=== PATIENT | female | born 1935 | race Caucasian/White ===

== ENCOUNTER → 2023-08-31 09:41 | Outpatient (REF) | payer OTHER, SELFPAY | LOC: HWWDC 09:41 | PROVIDERS: ATTENDING PHYSICIAN Physician Assistant Medical | DX: E78.2 Mixed hyperlipidemia (principal); C50.911 Malignant neoplasm of unspecified site of right female breast; Z12.31 Encounter for screening mammogram for malignant neoplasm of breast | CPT/HCPCS: 77063; 77067 ==

== ENCOUNTER → 2023-11-30 10:05 | Outpatient (REF) | payer OTHER, SELFPAY | LOC: HWRAD 10:05 | PROVIDERS: ATTENDING PHYSICIAN Internal Medicine Cardiovascular Disease; FAMILY PHYSICIAN Physician Assistant Medical | DX: I77.810 Thoracic aortic ectasia (principal) | CPT/HCPCS: 71250 ==

== ENCOUNTER 2024-04-30 11:27 | Inpatient (IN) | payer OTHER, SELFPAY ==
[2024-04-30] VITALS (10 sets, daily range): BP systolic 116–141; BP diastolic 74–82; PULSE 85; O2SAT 95; BMI 26.4; BMI 27.7
[2024-04-30 04:57] LABS: % Basophils 0.5 % (0-2); % Eosinophils 0.1 % (0-6); % Immature Granulocytes 0.6 % (0-0.5); % Lymphocytes 2.5 % (20.5-51.1); % Monocytes 6.8 % (1.7-9.3); % Neutrophils 89.5 % (42.2-75.2); Absolute Basophils 0.1 10^3/uL (0-0.2); Absolute Immature Granulocytes 0.1 10^3/uL (0-0.05); Absolute Lymphocytes 0.4 10^3/uL (1.2-3.4); Absolute Monocytes 1.2 10^3/uL (0.1-0.6); Absolute Neutrophils 15.4 10^3/uL (1.4-6.5); Hematocrit 37.5 % (37.0-47.0); Hemoglobin 13.2 g/dL (12.0-16.0); Mean Corp Hgb Conc. 35.2 g/dL (33.0-37.0); Mean Corpuscular Hgb 31.6 pg (27.0-31.0); Mean Corpuscular Volume 89.7 fL (81.0-99.0); Mean Platelet Volume 9.2 fL (7.4-10.4); Nucleated Red Blood Cells % 0 %; Platelet Count 221 10^3/uL (130-400); Red Blood Cell Count 4.18 10^6/uL (4.20-5.40); Red Cell Dist. Width 13.2 % (11.5-14.5); White Blood Cell Count 17.3 10^3/uL (4.8-10.8)
[2024-04-30 05:13] LABS: ALT (SGPT) 23 U/L (0-35); AST (SGOT) 24 U/L (14-36); Albumin 3.7 g/dl (3.5-5.0); Alkaline Phosphatase 82 U/L (38-126); Blood Urea Nitrogen 29 mg/dl (7-17); Calcium 8.9 mg/dl (8.4-10.2); Carbon Dioxide 26 mmol/L (22-30); Chloride 97 mmol/L (98-107); Glucose 152 mg/dl (70-99); Potassium 3.1 mmol/L (3.5-5.1); Sodium 134 mmol/L (135-145); Total Bilirubin 1.5 mg/dl (0.2-1.3); Total Protein 6.2 g/dl (6.3-8.2); eGFR > 60.00
[2024-04-30 05:23] LABS: Troponin I < 0.012 ng/ml
[2024-04-30 08:49] LABS: COVID-19 Antigen Negative (Negative)
--- NOTE | 2024-04-30 08:53 | ED.GENMED ---
History of Present Illness
General
Chief Complaint: Cold/Flu/URI Symptoms
Source: patient
Exam Limitations: none
Time Seen by Provider: 04/30/24 08:25
Nursing documentation reviewed up to this point in time: agreed with
History of Present Illness
History of Present Illness:
Patient is an 89-year-old female that started with hoarse voice cough fevers on Monday, 4 days ago. She had a temperature of 102.1. she complains of soreness to her left chest worse with taking a deep breath and moving. She denies injury. Pain
has been mostly constant for the past several days in this left chest but does feel sharp at times. She denies any other sick contacts.
Past History
Past History
ED Past Medical History: HTN and Hypercholesterolemia
ED Past Surgical History: None
Social History
Tobacco: Non-smoker
Alcohol: None
Review of Systems
Review of Systems
Allergies reviewed?: Yes
All Other Systems: ROS reviewed and negative except as documented in HPI and ROS
Constitutional: Reports fever, fatigue and chills
EENT: Reports no symptoms
Respiratory: Reports cough
Cardiac: Reports chest pain (left sided chest pain for past several days )
ABD/GI: Reports nausea; Denies vomiting
: Reports no symptoms
Musculoskeletal: Reports no symptoms
Skin: Reports no symptoms
Neurological: Reports no symptoms
Psychiatric: Reports no symptoms
Phy Exam
General Physical Exam
General Presentation: no apparent distress
General age: appears stated age
General Skin: warm and dry
General Habitus: elderly
General Mental: alert
General Hydration: dry mucous membranes
Cardiovascular Exam
Cardiovascular Exam: regular rate/rhythm, no murmur and normal peripheral pulses
Pulmonary Exam
Pulmonary Exam: no respiratory distress and other (right lung field with crackles )
Neurological Exam
Neurological Exam: alert and oriented x3
Musculoskeletal Exam
Musculoskeletal Exam: full ROM
Skin Exam
Skin Exam: normal color and warm/dry
Psychiatric Exam
Psychiatric Exam: normal mood/affect
Course
Orders/Labs/Results
Orders:
Orders
04/30/24 04:29
Electrocardiogram (*1) Urgent
Reason for Study: Shortness of Breath
04/30/24 04:30
EKG- Treatment ONCE
04/30/24 04:43
Complete Blood Count/With Diff Urgent
Comprehensive Metabolic Panel Urgent
Troponin I Urgent
Influenza A+B Rapid Molecular Urgent
MARK Source: Nasal Swab
Specimen Description:
04/30/24 07:47
CR Chest - 2 Views Urgent
Comment:
Reason For Exam: cough
04/30/24 08:22
COVID-19 Antigen Urgent
Source: Nasal Swab
04/30/24 09:07
Troponin I Urgent
04/30/24 09:19
Acetaminophen [Tylenol] 650 mg PO NOW STA
Azithromycin 500 mg/250 ml [Zithromax Infusion] 500 mg in 250 ml IV NOW
CefTRIAXone [Rocephin] 1,000 mg IV NOW STA
Potassium Chloride [KCl] 40 meq PO NOW STA
04/30/24 09:21
0.9% Sodium Chloride 1000 ml [Nss] 1,000 ml IV BOLUS
Morphine Sulfate 2 mg IV NOW STA
04/30/24 10:19
Ondansetron Injectable [Zofran] 4 mg IV NOW STA
04/30/24 10:21
Ondansetron Injectable [Zofran] 4 mg .ROUTE .ST-MED ONE
04/30/24 10:51
Admit/Transfer Patient As Directed
Co-Sign Provider:
Level of Care: Inpatient admission
Assign to:: Telemetry
Physician / Group: Hospitalist
Diagnosis: Pneumonia
Reason for Telemetry: Chest Pain syndromes
Date to Stop Telemetry: 05/02/24
Time to Stop Telemetry: 11:00
Reason for Hospitalization: Pneumonia with chest pain
Expected length of stay greater than two midnights?: Yes
ELOS- Estimated Length of Stay in days: 4
I certify the patient meets the requirements for IP care: Yes
PRN Pain Medication Management As Directed
May give lesser potent ordered pain med per pt: Yes
preference::
Protocol:: Medication orders for pain may be administered in a
manner that supports deferring to patient preference
when the pt is:
- Requesting an ordered lesser potent pain medication.
Least to most potent pain medications are defined
as: acetaminophen < NSAID < tramadol < opioids
(morphine, oxycodone, hydromorphone).
- Requesting a lesser dose of the same medication IF
ORDERED.
- Requesting a less intrusive route of administration
if both routes are prescribed by the provider (PO <
IV).
04/30/24 10:52
Code Status As Directed
Resuscitation Status: Full Code
04/30/24 12:51
0.9% Sodium Chloride 1000 ml [Nss] 1,000 ml IV 100 mls/hr
Acetaminophen [Tylenol] 650 mg PO Q4HPRN PRN
Bismuth Subsalicylate [[place]omb Bismuth] 524 mg PO DAILYPRN PRN
Ibuprofen [Motrin] 200 mg PO Q6HPRN PRN
Zolpidem Tartrate [Ambien] 5 mg PO HSPRN PRN
04/30/24 12:51
Respiratory Culture/Gram Stain Urgent
MARK Source: Sputum
Specimen Description:
Date Specimen was Collected: 05/01/24
Time Specimen was Collected: 03:22
Activity As Directed
Activity Level: Out of Bed-Early Mobility
Intake/ Output As Directed
Frequency: Per unit guidelines
Pneumatic Compression Sleeves As Directed
Type: Knee high
Vital Signs As Directed
Frequency: Per unit guidelines
Weight As Directed
Frequency: Once
Comment: on admission
Pt Eval And Treat Routine
Treatment: eval gait
Activity Level: With Assistance
DX Deep Vein Thrombosis Video Routine
04/30/24 12:59
Troponin I Q6H
04/30/24 13:30
Guaifenesin Solution [Robitussin] 200 mg PO Q4HPRN PRN
04/30/24 Dinner
Regular
At Your Request: Full Participation
Does patient need a safe tray?: No
04/30/24 18:00
Atorvastatin [Lipitor] 10 mg PO QPM
Metoprolol Xl [Toprol Xl] 25 mg PO QPM
04/30/24 20:00
Vit C/Vit E/Lutein/Min/[place]-3 [Ocuvite Softgel] 1 cap PO BID
05/01/24 06:34
Basic Metabolic Panel IN AM
Complete Blood Count/No Diff IN AM
05/01/24 08:00
Amlodipine [Norvasc] 5 mg PO DAILY
Azithromycin 500 mg/250 ml [Zithromax Infusion] 500 mg in 250 ml IV Q24H
Lisinopril [Zestril] 40 mg PO DAILY
05/01/24 10:00
CefTRIAXone [Rocephin] 1,000 mg IV Q24H
05/02/24 11:00
DC Protocol for Telemetry ONCE
Abnormal Lab Results
04/30/24
04:43
WBC 17.3 H 10^3/uL
(4.8-10.8)
RBC 4.18 L 10^6/uL
(4.20-5.40)
MCH 31.6 H pg
(27.0-31.0)
Abs Immat Gran (auto) 0.1 H 10^3/uL
(0-0.05)
Absolute Neuts (auto) 15.4 H 10^3/uL
(1.4-6.5)
Absolute Lymphs (auto) 0.4 L 10^3/uL
(1.2-3.4)
Absolute Monos (auto) 1.2 H 10^3/uL
(0.1-0.6)
Immature Gran % 0.6 H %
(0-0.5)
Neutrophils % 89.5 H %
(42.2-75.2)
Lymphocytes % 2.5 L %
(20.5-51.1)
Sodium 134 L mmol/L
(135-145)
Potassium 3.1 L mmol/L
(3.5-5.1)
Chloride 97 L mmol/L
(98-107)
BUN 29 H mg/dl
(7-17)
Glucose 152 H mg/dl
(70-99)
Total Bilirubin 1.5 H mg/dl
(0.2-1.3)
Total Protein 6.2 L g/dl
(6.3-8.2)
04/30/24 04:43
04/30/24 04:43
Vital Signs
Initial and Last Documented VS:
Initial Vital Signs
BP
119/74
04/30/24 08:38
Last Documented Vital Signs
Temp Pulse Resp BP Pulse Ox
98.7 F 101 18 114/72 93
05/01/24 11:25 05/01/24 11:25 05/01/24 11:25 05/01/24 11:25 05/01/24 11:25
MDM/Problems Addressed
Differential Diagnosis Includes:
Not limited to pneumonia bronchitis viral syndrome, COVID, influenza
MDM/Problems Addressed:
Patient is an 89-year-old with pneumonia. Patient started not feeling well several days ago with cough fever chills. X-ray shows right perihilar and right middle lobe pneumonia pneumonia. Patient presented mildly hypoxic on O2 now feeling
somewhat better on the oxygen. She is no acute distress however with age significant pneumonia and hypoxic will require admission. IV antibiotics ordered. Patient is also dry on exam BUN is elevated at 29 normal creatinine. Potassium slightly
low. Patient was given fluids for dehydration potassium ordered.
Patient does complain of left-sided chest discomfort this is worse with movement worse with taking a deep breath. Her initial cardiac troponin was negative no acute concerning findings and EKG second troponin rechecked likely muscular Tylenol and
morphine given.
*Radiology
Radiology exam reviewed: radiology read reviewed
*Pulse Oximetry
Patient hypoxic: yes
*EKG
Interpreted by ED Provider?: Yes
Interpretation: abnormal
Comparison EKG: no changes
Heart Rate: 94
Rate: normal
Rhythm: sinus
Ischemia: non-specific ST changes
*Critical Care Note
Total Time (30-74mins, 75-104mins- exclusive of procedures): Not Applicable
ED Attending Note
-
Portions of this chart may have been created with voice recognition software.� Occasional wrong word or��sound alike� substitutions may have occurred due to the inherent limitations of voice recognition software.
Discharge Plan
Departure
Patient Disposition: Admit
Date of Disposition: 04/30/24
Time of Disposition: 09:29
Admit to: Telemetry
Admit to doctor: hospitalist
Presentation/result/management discussed w/ accepting MD/DO: Hospitalist
Condition: Fair
Covid-19: Not Applicable
Discharge Problem:
Pneumonia
Interventions
Interventions:
*Risk Screen - Suicide Last Done: 04/30/24 04:27
*Neglect/Abuse Screening Last Done: 04/30/24 04:27
ED- Fall Risk Assessment Last Done: 04/30/24 08:28
*ED COVID-19 Vaccine History Last Done: 04/30/24 08:20
*Nursing Disposition Last Done: 04/30/24 13:09
VZ-Atvosz-Tsbkbhjejn Assessment Last Done: 04/30/24 08:55
ED- Pulmonary Assessment Last Done: 04/30/24 08:55
Discharge Date and Time
Discharge Date/Time: 04/30/24 12:35
[2024-04-30] MEDS: KCL 40 MEQ PO (09:30)
[2024-04-30] MEDS: TYLENOL 650 MG PO (09:30)
[2024-04-30] MEDS: NSS 1000 IV ×2 (09:31→14:31)
[2024-04-30] MEDS: MORPHINE SULFATE 2 MG IV ×2 (09:36→17:12)
[2024-04-30] MEDS: ROCEPHIN 1000 MG IV (09:44)
[2024-04-30] MEDS: ZITHROMAX INFUSION 250 IV (09:44)
[2024-04-30 09:58] LABS: Troponin I < 0.012 ng/ml
[2024-04-30] MEDS: ZOFRAN 4 MG IV (10:25)
--- NOTE | 2024-04-30 10:39 | HPS.HSE ---
Addendum entered and electronically signed by Candelario Sherwood MD 05/01/24 16:32:
..
Original Note:
Family Physician
-
Family Physician: Saad Weiner PA-C
Chief Complaint
-
Cough
History of Present Illness
89-year-old woman started with hoarse voice cough fevers on Monday, 4 days ago. She had a temperature at home of 102.1. She comes in with complains of soreness to her left chest, worse with taking a deep breath and moving, not present at the time
of my exam. She denies injury. Pain has been mostly constant and 'achy' for the past several days in this left chest but does feel sharp at times. She denies any other sick contacts. She has had large family gatherings recently. CXR found PNA.
Medical History
Past Medical History
Past Medical History: Reports Other
Additional Past Medical History:
Hypercholesterolemia
Hip fracture
Primary insomnia
Alkaline phosphatase elevation
Mixed hyperlipidemia
Dilated aortic root
Exudative age-related macular degeneration of both eyes with active choroidal neovascularization
History of breast cancer
Cardiomyopathy, unspecified mild and normal EF
Multiple pulmonary nodules
Essential (primary) hypertension
Aortic atherosclerosis
Aneurysm of ascending aorta without rupture
Murmur
History of sinus surgery
Past Surgical History: Reports None
Social History
Tobacco: Non-smoker
Alcohol: None
Drug: None
Living: With Family
Family History
Family History: Not pertinent
Allergies / Home Medications
Allergies reflects when Allergies were last updated in [facility].
Home Medications with original date entered in [employer]
Allergy/Medication List:
Allergies
Allergy/AdvReac Type Severity Reaction Status Date / Time
No Known Allergies Allergy Verified 04/30/24 09:20
Home Medications
metoprolol succinate 25 mg tablet,extended release 24 hr 25 mg PO QPM Blood pressure 08/05/21
simvastatin 20 mg tablet 20 mg PO QPM High cholesterol 08/05/21
vit C 250 mg-vit E 90 mg-zinc 40 mg-copper 1 [id number] capsule (PreserVision AREDS-2) 1 ea PO BID Supplement 08/05/21
amlodipine 2.5 mg tablet 5 mg (2 x 2.5 mg) PO DAILY Blood pressure #1 tab 08/25/21
bismuth subsalicylate 262 mg/15 mL oral suspension (Pepto-Bismol) 524 mg PO DAILYPRN PRN stomach issuses 04/30/24
guaifenesin 200 mg/5 mL oral liquid 200 mg PO Q4HPRN PRN cough 04/30/24
hydrochlorothiazide 12.5 mg tablet 12.5 mg PO DAILY Blood Pressure 04/30/24
ibuprofen 200 mg tablet (Advil) 200 mg PO Q6HPRN PRN mild pain 04/30/24
lisinopril 40 mg tablet 40 mg PO DAILY Blood Pressure 04/30/24
zolpidem 5 mg tablet (Ambien) 5 mg PO HSPRN PRN sleep 04/30/24
Review of Systems
-
History Source: Patient
A 12 point ROS was completed and negative except as noted: Yes
Physical Exam
Vital Signs
Vital Signs
Temp Pulse Resp BP Pulse Ox
99.5 F 81 26 120/74 92
04/30/24 08:39 04/30/24 10:15 04/30/24 10:15 04/30/24 10:00 04/30/24 09:30
Physical Exam
General: Well Developed, Well Nourished, No Apparent Distress, Comfortable and Conversant
HEENT: NormoCephalic, Nose Appears Normal and Ears Appear Normal
Respiratory: Crackles and Decreased Breath Sounds
Cardiac: S1/S2 and Regular Rhythm
GI: Soft, Non Tender and Non Distended
Musculoskeletal: No Clubbing, No Cyanosis and No Edema
Skin: Warm and Dry
Neuro: Awake, Alert, Oriented and AO x 3
Psych: Calm
Laboratory Results
-
04/30/24 04:43
04/30/24 04:43
Laboratory Results
Total Bilirubin 1.5 mg/dl (0.2-1.3) H 04/30/24 04:43
AST 24 U/L (14-36) 04/30/24 04:43
ALT 23 U/L (0-35) 04/30/24 04:43
Alkaline Phosphatase 82 U/L (38-126) 04/30/24 04:43
Troponin I < 0.012 ng/ml 04/30/24 09:07
Data Reviewed
-
Lab Data: Labs Reviewed by me
Impression/Plan
-
IMPRESSION:
89 woman with CA-PNA and hyponatremia. Significant findings:
WBC 17.3
K 3.1
Na 134
BUN/Creat 29/0.8
CXR:
Right perihilar and right middle lobe with mild right upper lobe extension
Small left pleural effusion
ECG:
SINUS RHYTHM WITH SINUS ARRHYTHMIA WITH OCCASIONAL PREMATURE VENTRICULAR COMPLEXES AND FUSION COMPLEXES
LEFT AXIS DEVIATION
NONSPECIFIC ST ABNORMALITY
WHEN COMPARED WITH ECG OF 05-AUG-2021 15:52, NO SIGNIFICANT CHANGE WAS FOUND
PLAN:
1. CA-PNA, not going to ICU. High risk given age.
IV ABX per protocol
Sputum cultures
Follow daily
2. Chest pain with cough and abnormal ECG - unlikely to be ACS, but has significant risk factors
Telemetry
[place]
3. Hyponatremia - likely hypovolemic hyponatremia given BUN/Creat ratio
IV saline
Recheck tomorrow
4. BUN/Creat > 20, likely from illness and decreased PO from nausea
Iv saline
5. Nausea - likely from PNA, acute illness
IV zofran as needed
Brat diet initially, then advance as tolerated.
6. Low K - likely from decreased PO - repletated in ED
Recheck daily
Replete as needed.
VCD for DVTp
Full code
[2024-04-30 13:57] LABS: Troponin I < 0.012 ng/ml
--- NOTE | 2024-04-30 14:30 | PTCARENOTE ---
this RN came to check on 405-2 and saw her putting medicine bottles in her bag. when I questioned her, she said she brought home meds with her and cannot wait till we give her her BP meds and just took what appears to be amlodipine 5 mg, HCTZ 2.5
and Lisinopril 40. I explained that she cannot do that but it looks like she has her mind set on what she did is right. MD made aware and pharmacict was made aware.
[2024-04-30] MEDS: MOTRIN 200 MG PO (15:38)
[2024-04-30] MEDS: TOPROL XL 25 MG PO (17:11)
[2024-04-30] MEDS: LIPITOR 10 MG PO (17:11)
[2024-04-30] MEDS: OCUVITE SOFTGEL 1 CAP PO (21:37)
[2024-04-30] MEDS: AMBIEN 5 MG PO (23:33)
[2024-05-01] MEDS: NSS 1000 IV ×2 (03:13→16:12)
[2024-05-01 03:25] VITALS: BP 124/84
[2024-05-01 06:58] LABS: Hematocrit 35.7 % (37.0-47.0); Hemoglobin 12.1 g/dL (12.0-16.0); Mean Corp Hgb Conc. 33.9 g/dL (33.0-37.0); Mean Corpuscular Hgb 31.1 pg (27.0-31.0); Mean Corpuscular Volume 91.8 fL (81.0-99.0); Mean Platelet Volume 9.4 fL (7.4-10.4); Platelet Count 231 10^3/uL (130-400); Red Blood Cell Count 3.89 10^6/uL (4.20-5.40); Red Cell Dist. Width 13.7 % (11.5-14.5); White Blood Cell Count 13.3 10^3/uL (4.8-10.8)
[2024-05-01 07:22] LABS: Blood Urea Nitrogen 23 mg/dl (7-17); Calcium 8.4 mg/dl (8.4-10.2); Carbon Dioxide 23 mmol/L (22-30); Chloride 102 mmol/L (98-107); Estimated Creatinine Clearance 65 ml/min; Glucose 102 mg/dl (70-99); Potassium 3.2 mmol/L (3.5-5.1); Sodium 135 mmol/L (135-145); eGFR > 60.00
[2024-05-01 07:40] VITALS: BP 119/82
[2024-05-01] MEDS: NORVASC 5 MG PO (08:36)
[2024-05-01] MEDS: OCUVITE SOFTGEL 1 CAP PO (08:36)
[2024-05-01] MEDS: ZITHROMAX INFUSION 250 IV (08:37)
[2024-05-01] MEDS: ZESTRIL 40 MG PO (08:37)
[2024-05-01] MEDS: FLUSH (NSS) 1 FLUSH IV ×2 (08:37→10:46)
[2024-05-01] MEDS: ROCEPHIN 1000 MG IV (10:46)
[2024-05-01] MEDS: STERILE WATER FOR INJECTION 10 ML IV (10:46)
[2024-05-01 11:25] VITALS: BP 114/72
[2024-05-01 15:15] VITALS: BP 119/74
--- NOTE | 2024-05-01 15:18 | W.PN.HOSP.TC ---
Addendum entered and electronically signed by Candelario Sherwood MD 05/01/24 16:33:
Assessment and Plan:
89 woman with CA-PNA and hyponatremia.
PLAN:
1. CA-PNA, not going to ICU. High risk given age.
IV ABX per protocol
Sputum cultures
Follow daily
2. Chest pain with cough and abnormal ECG - unlikely to be ACS, but has significant risk factors, pain resolved.
Telemetry
[place] - ruled out
3. Hyponatremia - likely hypovolemic hyponatremia given BUN/Creat ratio
IV saline
Recheck tomorrow
4. BUN/Creat > 20, likely from illness and decreased PO from nausea
Iv saline
5. Nausea - likely from PNA, acute illness
IV zofran as needed
Brat diet initially, then advance as tolerated.
6. Low K - likely from decreased PO - repleted in ED
Recheck daily
Replete as needed.
VCD for DVTp
Full code
Original Note:
Today's Communication/Plan
-
Responding well to treatment. K needs replacement.
Assessment / Plan
Assessment / Plan
Anticipated Discharge: 24 - 48 hours
Subjective/Interval History
-
Date of Service: May 01, 2024
Feels weak, about the same as yesterday.
Objective Data
-
Labs:
Laboratory Results
05/01/24
06:34
WBC 13.3 H
Hgb 12.1
Hct 35.7 L
Plt Count 231
Sodium 135
Potassium 3.2 L
Chloride 102
Carbon Dioxide 23
BUN 23 H
Creatinine 0.5 L
Glucose 102 H
Calcium 8.4
Vital Signs:
Vital Signs
Temp Pulse Resp BP Pulse Ox
98.7 F 101 18 114/72 93
05/01/24 11:25 05/01/24 11:25 05/01/24 11:25 05/01/24 11:25 05/01/24 11:25
I&O
04/30/24 05/01/24 05/02/24
06:59 06:59 06:59
Intake Total 1440 / 1440
Balance 1440 / 1440
Review of Systems
-
History Source: Patient
All other systems: Reviewed and negative
Physical Exam
-
General: Well Developed, Well Nourished, No Apparent Distress and Comfortable
HEENT: Nose Appears Normal and Ears Appear Normal
Respiratory: Rhonchi and Decreased Breath Sounds
Cardiac: Regular Rhythm and S1/S2
GI: Soft, Nontender and Nondistended
Musculoskeletal: No Clubbing, No Cyanosis and No Edema
Skin: Warm and Dry
Neuro: Awake, Alert and Oriented
Psych: Calm
Data Reviewed
-
Labs: Labs Reviewed by me
[2024-05-01] MEDS: KLOR-CON 20 MEQ PO (16:13)
--- NOTE | 2024-05-01 16:33 | PTCARENOTE ---
Pt AAO x3, GALVAN well, OOB to [facility] ; tires easily. VSS. Telemetry:A fib , HR to 130's with activity. On nc 2 lpm- pulseox 92%, pt with (+) PARR/tachypnea; occ productive cough- yellow/munson mucus. Abd soft, rounded, pilar PO, appetite fair. Voids clear
yellow urine on BSC. IVF's NSS @ 100 ml/hr infusing via Lt forearm site without sx of infiltration. Resting in bed at present. Will continue to monitior.
[2024-05-01] MEDS: LIPITOR 10 MG PO (17:25)
[2024-05-01] MEDS: TOPROL XL 25 MG PO (17:25)
[2024-05-01 19:30] VITALS: BP 121/74
[2024-05-01] MEDS: OCUVITE SOFTGEL PO (20:46)
[2024-05-01] MEDS: NSS IV (20:46)
[2024-05-01] MEDS: AMBIEN 5 MG PO (23:21)
[2024-05-01 23:37] VITALS: BP 131/73
[2024-05-02] VITALS (7 sets, daily range): BP systolic 122–155; BP diastolic 76–104; PULSE 114; O2SAT 93
[2024-05-02 07:52] LABS: Hematocrit 34.6 % (37.0-47.0); Hemoglobin 12.1 g/dL (12.0-16.0); Mean Corpuscular Hgb 31.6 pg (27.0-31.0); Mean Corpuscular Volume 90.3 fL (81.0-99.0); Mean Platelet Volume 9.3 fL (7.4-10.4); Platelet Count 250 10^3/uL (130-400); Red Blood Cell Count 3.83 10^6/uL (4.20-5.40); White Blood Cell Count 11.9 10^3/uL (4.8-10.8)
[2024-05-02 08:18] LABS: Blood Urea Nitrogen 18 mg/dl (7-17); Calcium 8.2 mg/dl (8.4-10.2); Carbon Dioxide 23 mmol/L (22-30); Chloride 105 mmol/L (98-107); Estimated Creatinine Clearance 65 ml/min; Glucose 115 mg/dl (70-99); Potassium 3.6 mmol/L (3.5-5.1); Sodium 137 mmol/L (135-145); eGFR > 60.00
[2024-05-02] MEDS: ZITHROMAX INFUSION 250 IV (08:29)
[2024-05-02] MEDS: NORVASC 5 MG PO (08:35)
[2024-05-02] MEDS: ZESTRIL 40 MG PO (08:35)
[2024-05-02] MEDS: OCUVITE SOFTGEL PO ×2 (08:35→08:41)
[2024-05-02] MEDS: KLOR-CON 20 MEQ PO (08:36)
[2024-05-02] MEDS: STERILE WATER FOR INJECTION 10 ML IV (10:20)
[2024-05-02] MEDS: ROCEPHIN 1000 MG IV (10:20)
[2024-05-02] MEDS: TOPROL XL 25 MG PO (10:45)
--- NOTE | 2024-05-02 12:46 | CM ---
Patient seen bedside.
Patient lives at [facility].
Patient Independent prior to admission, uses a rollator while in facility and cane when out of the facility.
Patient does not drive.
[facility]
Patient is not on home oxygen and does not have a nebulizer.
Per patient she had [facility] in the past and would like to have them again.
PCP: DR Weiner
Pharmacy: [facility] ([facility] and possible VN ([facility])
--- NOTE | 2024-05-02 15:14 | W.PN.HOSP.TC ---
Today's Communication/Plan
-
Increase metoprolol
Assessment / Plan
Assessment / Plan
89 woman with CA-PNA and hyponatremia.
PLAN:
severe sepsis with acute organ dysfunction secondary to pneumonia
Patient meets sepsis criteria on admission
Heart rate still significantly elevated
WBCs was elevated on admission at 17.3
Source of infection is pneumonia
IV fluid given
IV antibiotic in form of Rocephin/Zithromax
sputum culture shows normal dayday
Negative influenza
Musculoskeletal chest pain with cough and abnormal ECG - unlikely to be ACS, but has significant risk factors, pain resolved.
Telemetry
Hyponatremia
Resolved
Hypokalemia.
Replaced
CODE STATUS: Full code
DVT prophylaxis: Lovenox
Diet: Regular diet
Anticipated Discharge: 24 - 48 hours
Subjective/Interval History
-
Date of Service: May 02, 2024
Patient seen and examined at bedside
Patient noted to be tachycardic during ambulation, increased her metoprolol to be twice daily.
Shortness of breath improved, no chest pain.
Objective Data
-
Labs:
Laboratory Results
05/02/24
07:16
WBC 11.9 H
Hgb 12.1
Hct 34.6 L
Plt Count 250
Sodium 137
Potassium 3.6
Chloride 105
Carbon Dioxide 23
BUN 18 H
Creatinine 0.5 L
Glucose 115 H
Calcium 8.2 L
Vital Signs:
Vital Signs
Temp Pulse Resp BP Pulse Ox
97.9 F 110 18 131/93 93
05/02/24 11:48 05/02/24 11:48 05/02/24 11:48 05/02/24 11:48 05/02/24 11:48
I&O
05/01/24 05/02/24 05/03/24
06:59 06:59 06:59
Intake Total 1440 / 1440 2850 / 2850
Balance 1440 / 1440 2850 / 2850
Physical Exam
-
General: Well Developed, Well Nourished and Comfortable
HEENT: Normocephalic, Atraumatic, Moist Mucous Membranes, No Ptosis, PERRLA and Nose Appears Normal
Respiratory: Rales, Rhonchi, Crackles and Non Labored Respirations
Cardiac: Regular Rhythm, S1/S2 and Tachycardic
Breast: Deferred by me
GI: Soft, Nontender, Nondistended and Normal Bowel Sounds
Genito-urinary: No Costovertebral Tender
Musculoskeletal: No Clubbing, No Cyanosis and No Edema
Skin: Warm
Neuro: Awake, Alert, Oriented, AO x 3 and No Motor Deficits
Psych: Calm
[2024-05-02] MEDS: LOVENOX 40 MG SC (15:58)
--- NOTE | 2024-05-02 17:13 | PTCARENOTE ---
Received patient this am AAOx3. Pt is [place]. Pt OOB to [facility] and tolerated well. Pt hadn't had a bowel movement for a few days. Pt ordered Prune juice an had 3 formed soft bowel movements. Pt's remained in sinus tachycardia on tele. HR 100-122 at
rest. HR 150's with movement. Dr. Covington made aware. Pt's Toprol increased to 25 mg Po Bid. Pt given a now dose at 1045am as ordered. HR decreased into 100's. 1535 Pt went into A- fib on tele. HR in the 110-130. Dr. Covington made aware. Toprol
increased to 50 mg BID to start at 199905/02/23. Pt started on Lovenox SQ at 1600. Pt offered no complaints. Made patient comfortable. Cont to assess patient status.
[2024-05-02] MEDS: LIPITOR 10 MG PO (18:16)
[2024-05-02] MEDS: TOPROL XL 50 MG PO (21:32)
[2024-05-02] MEDS: OCUVITE SOFTGEL 1 CAP PO (21:32)
[2024-05-03] VITALS (9 sets, daily range): BP systolic 87–150; BP diastolic 80–106
[2024-05-03] MEDS: TYLENOL 650 MG PO (08:17)
[2024-05-03] MEDS: ZITHROMAX INFUSION 250 IV (08:18)
[2024-05-03] MEDS: ROBITUSSIN 200 MG PO ×2 (08:18→20:50)
[2024-05-03] MEDS: OCUVITE SOFTGEL PO ×2 (08:19→20:50)
[2024-05-03] MEDS: LOVENOX 40 MG SC (08:24)
[2024-05-03] MEDS: KLOR-CON 20 MEQ PO (08:25)
--- NOTE | 2024-05-03 08:53 | VNURNOTE ---
[facility] lia[facility] spoke with patient. Clarified with patient that she is NOT current with [facility], she stated she has had them in the past, not current with them. She is requesting [facility] nursing, PT, OT once [place]'ed. Referral accepted in [facility]. PRIYA
Melissa notified. Will continue to follow hospitalization course and if home 02 needs.
[2024-05-03] MEDS: TOPROL XL 50 MG PO ×2 (09:06→20:48)
[2024-05-03] MEDS: ZESTRIL 40 MG PO (09:06)
[2024-05-03] MEDS: STERILE WATER FOR INJECTION 10 ML IV (09:07)
[2024-05-03] MEDS: ROCEPHIN 1000 MG IV (09:08)
[2024-05-03] MEDS: PINK BISMUTH 525 MG PO (09:12)
[2024-05-03 09:13] LABS: Hemoglobin 12.4 g/dL (12.0-16.0); Mean Corp Hgb Conc. 35.4 g/dL (33.0-37.0); Mean Corpuscular Hgb 31.9 pg (27.0-31.0); Mean Platelet Volume 9.2 fL (7.4-10.4); Platelet Count 256 10^3/uL (130-400); Red Blood Cell Count 3.89 10^6/uL (4.20-5.40); White Blood Cell Count 12.2 10^3/uL (4.8-10.8)
[2024-05-03 10:24] LABS: Blood Urea Nitrogen 17 mg/dl (7-17); Calcium 8.7 mg/dl (8.4-10.2); Carbon Dioxide 24 mmol/L (22-30); Chloride 103 mmol/L (98-107); Estimated Creatinine Clearance 65 ml/min; Glucose 141 mg/dl (70-99); Potassium 3.4 mmol/L (3.5-5.1); Sodium 139 mmol/L (135-145); eGFR > 60.00
[2024-05-03 15:13] LABS: Body Fluid pH 7.44
[2024-05-03 15:35] LABS: Body Fluid Mononuclear 21.2 %; Body Fluid Polymorphonuclear 78.8 %; Body Fluid WBC 1921 /CUMM
[2024-05-03 16:05] LABS: Body Fluid Second Tech DW
[2024-05-03 16:11] LABS: Body Fluid Amylase < 30 U/L; Body Fluid Glucose 88 mg/dl; Body Fluid Protein 3.2 g/dl; Body Fluid Triglycerides 45 mg/dl
--- NOTE | 2024-05-03 16:13 | W.PN.HOSP.TC ---
Today's Communication/Plan
-
Continue IV antibiotics
Assessment / Plan
Assessment / Plan
89 woman with CA-PNA and hyponatremia.
PLAN:
severe sepsis with acute organ dysfunction secondary to pneumonia
Patient meets sepsis criteria on admission
Heart rate still significantly elevated
WBCs was elevated on admission at 17.3
Source of infection is pneumonia
IV fluid given
IV antibiotic in form of Rocephin/Zithromax
sputum culture shows normal dayday
Negative influenza
05/03
Patient feels better than yesterday, discussed CT scan result:
No evidence of pulmonary embolism.
Progressive fusiform dilatation of the main pulmonary artery, with associated elevated right-sided heart pressure/pulmonary artery hypertension.
Stable fusiform aneurysmal dilatation of the ascending aorta measuring up to 4.2 cm.
Moderate left and small right pleural effusion.
Mild hilar and mediastinal adenopathy, not present previously.
Pulmonary parenchymal disease process, consistent with pneumonia in the posterior segment right upper lobe, right lower lobe, and lingula.
IR consulted for thoracentesis, eventually patient has left thoracentesis with removal of 300 cc
Parapneumonic pleural effusion.
Status post thoracentesis
Sinus tachycardia.
Secondary to sepsis
Patient on metoprolol 25 mg at night.
Switch to Toprol-XL 50 mg twice daily.
Amlodipine discontinue
History of hypertension.
Patient on lisinopril/hydrochlorothiazide/metoprolol/amlodipine at home.
Secondary to constant tachycardia metoprolol increased and amlodipine discontinued.
Consider resume amlodipine if blood pressure starts to be elevated
Musculoskeletal chest pain with cough
Improved
History of aortic aneurysm.
Stable
Hyponatremia
Resolved
Hypokalemia.
Replaced
CODE STATUS: Full code
DVT prophylaxis: Lovenox
Diet: Regular diet
Anticipated Discharge: 24 - 48 hours
Subjective/Interval History
-
Date of Service: May 03, 2024
Patient seen and examined at bedside, improved chest pain, improved shortness of breath, still coughing, improved tachycardia, no abdominal pain, no nausea, no vomiting, no diarrhea or constipation.
Objective Data
-
Labs:
Laboratory Results
05/03/24
08:33
WBC 12.2 H
Hgb 12.4
Hct 35.0 L
Plt Count 256
Sodium 139
Potassium 3.4 L
Chloride 103
Carbon Dioxide 24
BUN 17
Creatinine 0.5 L
Glucose 141 H
Calcium 8.7
Vital Signs:
Vital Signs
Temp Pulse Resp BP Pulse Ox
98.0 F 89 18 129/88 92
05/03/24 13:45 05/03/24 14:29 05/03/24 14:29 05/03/24 14:29 05/03/24 13:45
I&O
05/02/24 05/03/24 05/04/24
06:59 06:59 06:59
Intake Total 2850 / 2850 240 / 240
Output Total 100 / 100
Balance 2850 / 2850 140 / 140
Physical Exam
-
General: Well Developed, Well Nourished and Comfortable
HEENT: Normocephalic, Atraumatic, Moist Mucous Membranes, No Ptosis, PERRLA and Nose Appears Normal
Respiratory: Rales, Rhonchi, Crackles and Non Labored Respirations
Cardiac: Regular Rhythm, S1/S2 and Tachycardic
Breast: Deferred by me
GI: Soft, Nontender, Nondistended and Normal Bowel Sounds
Genito-urinary: No Costovertebral Tender
Musculoskeletal: No Clubbing, No Cyanosis and No Edema
Skin: Warm
Neuro: Awake, Alert, Oriented, AO x 3 and No Motor Deficits
Psych: Calm
[2024-05-03 16:17] LABS: Body Fluid LDH 1401 U/L
--- NOTE | 2024-05-03 16:22 | PTCARENOTE ---
Patient returned from thoracentesis in IR with band aid CDI to L side.
--- NOTE | 2024-05-03 17:33 | CM ---
Pt lives at [facility].
Pt requested [facility] . Referral accepted.
Requested OT order from MD.
Watch for new oxygen need.
IV antibiotic maintained.
PLAN Will depend on PT OT evals
[2024-05-03] MEDS: LIPITOR 10 MG PO (17:42)
[2024-05-03] MEDS: AMBIEN 5 MG PO (20:51)
[2024-05-04] VITALS (7 sets, daily range): BP systolic 128–143; BP diastolic 86–98; O2SAT 92
--- NOTE | 2024-05-04 07:20 | W.PN.HOSP.TC ---
Today's Communication/Plan
-
Echo, Eliquis for A-Fib
Antibiotic changed to Unasyn
Assessment / Plan
Assessment / Plan
Physical Exam
General: Well Developed, Well Nourished and Comfortable
HEENT: Normocephalic, Atraumatic, Moist Mucous Membranes
Respiratory: CTAB
Cardiac: S1/S2. Irregular Rhythm.
GI: Soft, Nontender, Nondistended and Normal Bowel Sounds
Musculoskeletal: No Cyanosis and No Edema
Skin: Warm
Neuro: Awake, Alert, Oriented, AAO x 3 and No Motor Deficits
Psych: Calm
Assessment/Plan
89 woman with CA-PNA and hyponatremia.
severe sepsis with acute organ dysfunction secondary to pneumonia
Patient met sepsis criteria on admission
Heart rate still significantly elevated
WBCs was elevated on admission at 17.3
Source of infection is pneumonia
IV fluid given
IV antibiotic in form of Unasyn.
Previously was on Rocephin.
Zithromax stopped as completed 4 day course.
sputum culture shows normal dayday
Negative influenza
89 female with community-acquired pneumonia, pleural effusion s/p thoracentesis.
1/
Patient feels better than yesterday, discussed CT scan result:
No evidence of pulmonary embolism.
Progressive fusiform dilatation of the main pulmonary artery, with associated elevated right-sided heart pressure/pulmonary artery hypertension.
Stable fusiform aneurysmal dilatation of the ascending aorta measuring up to 4.2 cm.
Moderate left and small right pleural effusion.
Mild hilar and mediastinal adenopathy, not present previously.
Pulmonary parenchymal disease process, consistent with pneumonia in the posterior segment right upper lobe, right lower lobe, and lingula.
IR consulted for thoracentesis, eventually patient had left thoracentesis with removal of 300 cc -- effusion is exudative
Parapneumonic pleural effusion.
Status post thoracentesis
Atrial Fibrillation
Increase Metoprolol.
New Medication: Start Eliquis
Switch to Toprol-XL 50 mg twice daily.
Echocardiogram
Might consider cardioversion prior to discharge to reassess as an outpatient when has recovered from pneumonia
Appreciate cardiology
History of hypertension.
Patient on lisinopril/hydrochlorothiazide/metoprolol/amlodipine at home.
Secondary to constant tachycardia metoprolol increased and amlodipine discontinued.
Consider resume amlodipine if blood pressure starts to be elevated
Musculoskeletal chest pain with cough
Improved
History of aortic aneurysm.
Stable
Hyponatremia
Resolved
Hypokalemia.
Replaced
CODE STATUS: Full code
DVT prophylaxis: Lovenox
Diet: Regular diet
Anticipated Discharge: > 48 hours
Subjective/Interval History
-
Date of Service: May 04, 2024
Patient was seen and examined. She reported that overall, she was feeling better.
Objective Data
-
Labs:
Laboratory Results
05/04/24
06:00
WBC Pending
Hgb Pending
Hct Pending
Plt Count Pending
Sodium Pending
Potassium Pending
Chloride Pending
Carbon Dioxide Pending
BUN Pending
Creatinine Pending
Glucose Pending
Calcium Pending
Vital Signs:
Vital Signs
Temp Pulse Resp BP Pulse Ox
99.1 F 100 18 143/95 95
05/04/24 03:25 05/04/24 03:25 05/04/24 03:25 05/04/24 03:25 05/04/24 03:25
I&O
05/03/24 05/04/24 05/05/24
06:59 06:59 06:59
Intake Total 240 / 240 720 / 720
Output Total 100 / 100
Balance 140 / 140 720 / 720
[2024-05-04 08:32] LABS: Hematocrit 33.5 % (37.0-47.0); Hemoglobin 11.5 g/dL (12.0-16.0); Mean Corp Hgb Conc. 34.3 g/dL (33.0-37.0); Mean Corpuscular Hgb 31.2 pg (27.0-31.0); Mean Corpuscular Volume 90.8 fL (81.0-99.0); Mean Platelet Volume 9.4 fL (7.4-10.4); Platelet Count 301 10^3/uL (130-400); Red Blood Cell Count 3.69 10^6/uL (4.20-5.40); Red Cell Dist. Width 14.4 % (11.5-14.5); White Blood Cell Count 11.7 10^3/uL (4.8-10.8)
[2024-05-04] MEDS: ZITHROMAX INFUSION 250 IV (09:18)
[2024-05-04] MEDS: PINK BISMUTH 525 MG PO (09:29)
[2024-05-04] MEDS: LOVENOX 40 MG SC (09:30)
[2024-05-04] MEDS: ZESTRIL 40 MG PO (09:30)
[2024-05-04] MEDS: TOPROL XL 50 MG PO ×2 (09:30→21:11)
[2024-05-04] MEDS: OCUVITE SOFTGEL PO ×2 (09:31→21:11)
[2024-05-04 09:37] LABS: Blood Urea Nitrogen 20 mg/dl (7-17); Calcium 8.2 mg/dl (8.4-10.2); Carbon Dioxide 25 mmol/L (22-30); Chloride 103 mmol/L (98-107); Estimated Creatinine Clearance 65 ml/min; Glucose 116 mg/dl (70-99); Potassium 3.6 mmol/L (3.5-5.1); Sodium 140 mmol/L (135-145); eGFR > 60.00
[2024-05-04] MEDS: STERILE WATER FOR INJECTION 10 ML IV (10:25)
[2024-05-04] MEDS: ROCEPHIN 1000 MG IV (10:27)
[2024-05-04] MEDS: KLOR-CON 20 MEQ PO (12:57)
[2024-05-04] MEDS: ZOFRAN 4 MG IV (12:58)
--- NOTE | 2024-05-04 15:14 | CON.CAR ---
Consultation
Consultation Request
Date/Time Consultation Requested: 05/04/2024 14: 00
Date/Time Consultation Performed: 05/04/2024 15: 00
Requesting Provider: tyra
Performing Provider: Josselyn
Reason for Consultation: Atrial fibrillation
Medical History
-
Chief Complaint: Fever and hoarse voice
History of Present Illness:
Natalia has a history of hypertension, aortic insufficiency, nonischemic cardiomyopathy which has resolved, ascending aortic aneurysm, hyperglycemia, right breast cancer. She presented with hoarseness and fever and found to have pneumonia. She is
found to be in A-fib on EKG cardiology consulted. She has had some palpitations. She denies chest pain or shortness of breath.
Past Medical History
Past Medical History: Other (See HPI, thyroid nodule, jaw tumor excision, diverticulosis, squamous cell cancer, seasonal rhinitis)
Past Surgical History: Other (See HPI, left breast biopsy, sinus surgery, transanal excision of rectum 2007, right breast biopsy, lumpectomy, right femoral surgery 2021)
Social History
Tobacco: Non-Smoker
Alcohol: None
Drug: None
Living: With Family
Employment: Retired
Family History
Family History: Other (Mother of cancer at 80)
Allergies / Home Medications
Allergy/AdvReac Type Severity Reaction Status Date / Time
No Known Allergies Allergy Verified 04/30/24 09:20
�Medication �Instructions �Recorded �Confirmed �Type
metoprolol succinate 25 mg 25 mg PO QPM Blood pressure 08/05/21 04/30/24 History
tablet,extended release 24 hr
simvastatin 20 mg tablet 20 mg PO QPM High cholesterol 08/05/21 04/30/24 History
vit C 250 mg-vit E 90 mg-zinc 40 1 ea PO BID Supplement 08/05/21 04/30/24 History
mg-copper 1 [id number]
capsule (PreserVision AREDS-2)
amlodipine 2.5 mg tablet 5 mg (2 x 2.5 mg) PO DAILY Blood 08/25/21 04/30/24 Rx
pressure #1 tab
bismuth subsalicylate 262 mg/15 mL 524 mg PO DAILYPRN PRN stomach 04/30/24 04/30/24 History
oral suspension (Pepto-Bismol) issuses
guaifenesin 200 mg/5 mL oral liquid 200 mg PO Q4HPRN PRN cough 04/30/24 04/30/24 History
hydrochlorothiazide 12.5 mg tablet 12.5 mg PO DAILY Blood Pressure 04/30/24 04/30/24 History
ibuprofen 200 mg tablet (Advil) 200 mg PO Q6HPRN PRN mild pain 04/30/24 04/30/24 History
lisinopril 40 mg tablet 40 mg PO DAILY Blood Pressure 04/30/24 04/30/24 History
zolpidem 5 mg tablet (Ambien) 5 mg PO HSPRN PRN sleep 04/30/24 04/30/24 History
Review of Systems
-
History Source: Patient
All other systems: Negative unless noted
Constitutional: Fever
EENT: No Symptoms
Respiratory: No Symptoms
Cardiac: Palpitations
Abdomen/GI: No Symptoms
: No Symptoms
Musculoskeletal: No Symptoms
Skin: No Symptoms
Neurological: No Symptoms
Endocrine: No Symptoms
Hematologic/Lymphatic: No Symptoms
Physical Exam
Vital Signs
Temp Pulse Resp BP Pulse Ox
98 F 106 20 138/86 93
05/04/24 11:55 05/04/24 11:55 05/04/24 11:55 05/04/24 11:55 05/04/24 13:39
Lab Results
05/04/24 07:31
05/04/24 07:31
Troponin I Cancelled 05/01/24 06:51
General: Well developed, well nourished in NAD.
Neck: Supple, no JVD, HJR, carotids +2 B/L, no bruits bilaterally.
Heart: Non displaced PMI, irregular, 2/6 basal systolic murmur, No S3, S4, no rubs.
Lungs: Clear to auscultation bilaterally, no wheeze, rhonchi, rubs bilaterally,
normal expiratory phase.
Abdomen: Normal bowel sounds, soft, non-tender, non-distended.
Extremities: No clubbing, cyanosis or edema bilaterally.
Neuro: Grossly nonfocal, awake, alert and oriented x3.
Impression / Plan
-
Impression:
Atrial fibrillation
Pneumonia
Parapneumonic effusion status post thoracentesis
History of aortic aneurysm/CT of chest with 4.2 cm and ascending aorta 05/2024
Hypertension
Hypercholesterolemia
History of breast cancer
Anemia
Echocardiogram December 20, 2021: Ejection fraction 50%, proximal ascending aorta 4.5 cm, moderate AI
Lexiscan mibi 11/2021: fixed apical anterior defect consistent with soft tissue attenuation.
CT of chest with ascending aortic aneurysm measuring 4.2 cm
Plan:
Appears to have had atrial fibrillation over the past couple days but was in sinus rhythm in the ER on admission
Will start Eliquis
Will increase Toprol
Will check echocardiogram
Might consider cardioversion prior to discharge to reassess as an outpatient when has recovered from pneumonia
Continue antibiotics for pneumonia
Data Reviewed
-
EKG: Tracing Personally Visualized and interpreted
Radiology: Report Reviewed by me
CT Scan: Report Reviewed by me
Medical Tests (Nuc Med, Echo etc): Report Reviewed by me
Labs: Labs Reviewed by me
Old Records: Reviewed
[2024-05-04] MEDS: LIPITOR 10 MG PO (16:52)
[2024-05-04] MEDS: AMBIEN 5 MG PO (21:11)
--- NOTE | 2024-05-04 21:45 | PTCARENOTE ---
pt complaining of pain with inspiration under L breast upon assessment- this pain had resolved since thoracentesis performed on 05/03. pt is satting at 94% on 2L, respirations at 20. [employer] made aware of pt concerns- will continue to monitor pt
respiratory status throughout the night.
[2024-05-05 03:36] VITALS: BP 145/89
[2024-05-05] MEDS: ROBITUSSIN 200 MG PO ×2 (05:10→22:58)
[2024-05-05] MEDS: UNASYN IV ×4 (05:10→23:00)
--- NOTE | 2024-05-05 07:22 | W.PN.HOSP.TC ---
Today's Communication/Plan
-
PT/OT
Possible SNF placement -- await PT/OT
Assessment / Plan
Assessment / Plan
Physical Exam
General: Well Developed, Well Nourished and Comfortable
HEENT: Normocephalic, Atraumatic, Moist Mucous Membranes
Respiratory: CTAB
Cardiac: S1/S2. Irregular Rhythm.
GI: Soft, Nontender, Nondistended and Normal Bowel Sounds
Musculoskeletal: No Cyanosis and No Edema
Skin: Warm
Neuro: Awake, Alert, Oriented, AAO x 3 and No Motor Deficits
Psych: Calm
Assessment/Plan
89 woman with CA-PNA and hyponatremia.
Severe sepsis with acute organ dysfunction secondary to pneumonia
Patient met sepsis criteria on admission
Heart rate still significantly elevated
WBCs was elevated on admission at 17.3
Source of infection is pneumonia
Previously was on Rocephin, Unasyn, Zithromax.
Can transition to Levofloxacin 750mg po daily x 5 more days - repeat CXR in 2-3 weeks to follow pleural fluid, infiltrates.
sputum culture shows normal dayday
Negative influenza
1/3
Patient feels better than yesterday, discussed CT scan result:
No evidence of pulmonary embolism.
Progressive fusiform dilatation of the main pulmonary artery, with associated elevated right-sided heart pressure/pulmonary artery hypertension.
Stable fusiform aneurysmal dilatation of the ascending aorta measuring up to 4.2 cm.
Moderate left and small right pleural effusion.
Mild hilar and mediastinal adenopathy, not present previously.
Pulmonary parenchymal disease process, consistent with pneumonia in the posterior segment right upper lobe, right lower lobe, and lingula.
IR consulted for thoracentesis, eventually patient had left thoracentesis with removal of 300 cc -- effusion is exudative
Parapneumonic pleural effusion.
Status post thoracentesis
Atrial Fibrillation
Increase Metoprolol.
New Medication: Start Eliquis
Switch to Toprol-XL 50 mg twice daily.
Echocardiogram
Might consider cardioversion prior to discharge to reassess as an outpatient when has recovered from pneumonia
Appreciate cardiology
History of hypertension.
Patient on lisinopril/hydrochlorothiazide/metoprolol/amlodipine at home.
Secondary to constant tachycardia metoprolol increased and amlodipine discontinued.
Consider resume amlodipine if blood pressure starts to be elevated
Musculoskeletal chest pain with cough
Improved
History of aortic aneurysm.
Stable
Hyponatremia
Resolved
Hypokalemia.
Replaced
CODE STATUS: Full code
DVT prophylaxis: Eliquis
Diet: Regular diet
Anticipated Discharge: Within 24 hours
Subjective/Interval History
-
Date of Service: May 05, 2024
Patient was seen and examined. She reported some chest wall pain on the left side, but denied any other symptoms or complaints.
Objective Data
-
Labs:
Laboratory Results
05/05/24
07:04
WBC Pending
Hgb Pending
Hct Pending
Plt Count Pending
Sodium Pending
Potassium Pending
Chloride Pending
Carbon Dioxide Pending
BUN Pending
Creatinine Pending
Glucose Pending
Calcium Pending
Vital Signs:
Vital Signs
Temp Pulse Resp BP Pulse Ox
98.1 F 91 24 145/89 92
05/05/24 03:36 05/05/24 03:36 05/05/24 03:36 05/05/24 03:36 05/05/24 03:36
I&O
05/04/24 05/05/24 05/06/24
06:59 06:59 06:59
Intake Total 720 / 720 720 / 720
Balance 720 / 720 720 / 720
[2024-05-05 07:30] VITALS: BP 130/90
[2024-05-05 08:24] LABS: Hematocrit 35.3 % (37.0-47.0); Hemoglobin 12.2 g/dL (12.0-16.0); Mean Corp Hgb Conc. 34.6 g/dL (33.0-37.0); Mean Corpuscular Hgb 31.5 pg (27.0-31.0); Mean Corpuscular Volume 91.2 fL (81.0-99.0); Mean Platelet Volume 9.5 fL (7.4-10.4); Platelet Count 330 10^3/uL (130-400); Red Blood Cell Count 3.87 10^6/uL (4.20-5.40); White Blood Cell Count 12.3 10^3/uL (4.8-10.8)
[2024-05-05] MEDS: OCUVITE SOFTGEL 1 CAP PO ×2 (08:49→20:43)
[2024-05-05] MEDS: KLOR-CON 20 MEQ PO (08:49)
[2024-05-05] MEDS: TOPROL XL 50 MG PO ×2 (08:50→20:43)
[2024-05-05] MEDS: ZESTRIL 40 MG PO (08:50)
[2024-05-05] MEDS: LOVENOX SC (08:50)
[2024-05-05 08:52] LABS: Blood Urea Nitrogen 20 mg/dl (7-17); Carbon Dioxide 31 mmol/L (22-30); Chloride 101 mmol/L (98-107); Estimated Creatinine Clearance 65 ml/min; Glucose 87 mg/dl (70-99); Potassium 3.7 mmol/L (3.5-5.1); Sodium 140 mmol/L (135-145); eGFR > 60.00
[2024-05-05] MEDS: ELIQUIS 5 MG PO ×2 (08:52→20:42)
--- NOTE | 2024-05-05 09:31 | W.PN.CARDCBS ---
Today's Communication / Plan
-
Eliquis has been added
Continue Toprol for rate control
consider cardioversion when has recovered from pneumonia
Impression / Plan
-
Impression:
Atrial fibrillation
Pneumonia
Parapneumonic effusion status post thoracentesis
History of aortic aneurysm/CT of chest with 4.2 cm and ascending aorta 05/2024
Hypertension
Hypercholesterolemia
History of breast cancer
Anemia
Echocardiogram December 20, 2021: Ejection fraction 50%, proximal ascending aorta 4.5 cm, moderate AI
Lexiscan mibi 11/2021: fixed apical anterior defect consistent with soft tissue attenuation.
CT of chest with ascending aortic aneurysm measuring 4.2 cm
Plan:
Has been in A-fib for at least the last 48 hours
Likely asymptomatic
Heart rate control reasonable
Continue Toprol and Eliquis
Will check echocardiogram
Might consider cardioversion prior to discharge vs reassess as an outpatient when has recovered from pneumonia
Continue antibiotics for pneumonia
Progress Note - [employer] Intern
Subjective
Date of Service: May 05, 2024
No complaints
Objective
Labs:
05/05/24 07:04
05/05/24 07:04
Labs
Hgb 12.2 g/dL (12.0-16.0) 05/05/24 07:04
Hct 35.3 % (37.0-47.0) L 05/05/24 07:04
Plt Count 330 10^3/uL (130-400) 05/05/24 07:04
Sodium 140 mmol/L (135-145) 05/05/24 07:04
Potassium 3.7 mmol/L (3.5-5.1) 05/05/24 07:04
BUN 20 mg/dl (7-17) H 05/05/24 07:04
Creatinine 0.5 mg/dL (0.6-1.0) L 05/05/24 07:04
Glucose 87 mg/dl (70-99) 05/05/24 07:04
Vital Signs and I&O:
Vital Signs
Temp Pulse Resp BP Pulse Ox
99.2 F 99 18 130/90 94
05/05/24 07:30 05/05/24 08:50 05/05/24 07:30 05/05/24 08:50 05/05/24 07:30
Vital Signs
Temp Pulse Resp BP Pulse Ox
99.2 F 99 18 130/90 94
05/05/24 07:30 05/05/24 08:50 05/05/24 07:30 05/05/24 08:50 05/05/24 07:30
Intake & Output
05/03/24 05/04/24 05/05/24 05/06/24
06:59 06:59 06:59 06:59
Intake Total 240 / 240 720 / 720 720 / 720
Output Total 100 / 100
Balance 140 / 140 720 / 720 720 / 720
Physical Exam
Physical Exam
General: Well developed, well nourished in NAD.
Neck: Supple, no JVD, HJR, carotids +2 B/L, no bruits bilaterally.
Heart: Non displaced PMI, irregular, no murmurs, No S3, S4, no rubs.
Lungs: Scattered rhonchi at the bases
Extremities: No clubbing, cyanosis or edema bilaterally.
Neuro: Grossly nonfocal, awake, alert and oriented x3.
[2024-05-05 11:22] VITALS: BP 115/75
[2024-05-05] MEDS: ZOFRAN 4 MG IV (13:29)
--- NOTE | 2024-05-05 14:32 | CM ---
CM continues to follow for discharge planning. Natalia lives at [facility] and wants to return there when medically ready for discharge. Would benefit from PT/OT re-eval prior to discharge.
[2024-05-05 15:15] VITALS: BP 112/79
--- NOTE | 2024-05-05 16:00 | CON.ID ---
Consultation
-
Date/Time Consultation Requested: May 05, 2024 1513
Date/Time Consultation Performed: May 05, 2024 1600
Requesting Provider: Dr. Michael Tyson
Performing Provider: Dr. Reyna Whiet
Reason for Consultation: Parapneumonic effusion
Chief Complaint / Past History
Chief Complaint
Left chest pain
History of Present Illness
89-year-old female with history of right breast cancer status postlumpectomy 5 years ago, heart failure with preserved EF, ascending aortic aneurysm, incidental finding of pulm nodules and bronchiectasis on November 2023 CAT scan for which she follows
with pulmonary, who presented to the hospital on 04/30 with approximately 3-day history of left chest pain from shoulder down the side of her chest worse with deep breathing. Also she noted hoarse voice and cough. Had fever at home. In the ER
temperature normal. White count of 17.3. Chest x-ray showed right lung infiltrates and small left pleural effusion. CAT scan with chest showed right upper lobe, right lower lobe, and lingular opacities consistent with pneumonia, moderate left
pleural effusion, small right pleural effusion, mild hilar and mediastinal adenopathy. On May 03, she underwent thoracentesis of the left pleura yielding 300 cc of yellow fluid. Pleural fluid culture negative to date. Cytology pending. Repeat
chest x-ray shows bilateral parenchymal opacities. Patient received 5 days of ceftriaxone and azithromycin, currently on Unasyn. Patient also developed new onset A-fib while in the hospital. Echocardiogram pending. Cardiology is considering
cardioversion prior to discharge. Today patient reports left chest wall pain is better. Cough is looser productive of sputum. She denies ill contacts. Denies aspiration with food.
Past History
Additional Past Medical History:
Hypertension
Dyslipidemia
Ascending aorta aneurysm 4.2cm
Heart failure with preserved EF
Lung nodules (11/2023 CT)
Bronchiectasis (11/2023 CT)
Insomnia
History of right breast cancer status post lumpectomy
transanal excision of rectum 2007
right femoral surgery 2021
jaw tumor excision
Allergy History:
No Known Allergies Allergy (Verified 04/30/24 09:20)
Medications Reviewed: Yes
Current Antibiotics:
s/p ceftriaxone/azithromycin (04/30 - 05/04)
Unasyn d1
Social History
Tobacco: Non-Smoker
Alcohol: None
Drug: None
Living: With Family
Family History
Family History: Not Pertinent
Review of Systems
Review of Systems
General: Negative Change in Appetite
HEENT: Negative Stiff Neck, Sinus Problems, Headache or Pharyngitis
Respiratory: Dyspnea and Cough
Gasteroenterology: Nausea; Negative Vomiting or Diarrhea
Genital / Urological: Negative Dysuria or Flank Pain
Endocrine: Weakness
Skin / Hair / Nails: Negative Rash
Neurological: Negative Dizziness
All systems: All other systems were reviewed and were negative
Vital Signs
Temp Pulse Resp BP Pulse Ox
97.9 F 94 18 115/75 95
05/05/24 11:22 05/05/24 11:22 05/05/24 11:22 05/05/24 11:22 05/05/24 11:22
Physical Exam
Physical Exam
Constitutional: No Acute Distress
Head: Other (No frontal or maxillary sinus tenderness)
Eyes: Negative No Conjunctival Hemorrhage, Sclera Anicteric or Erythema
Cardiovascular: Irregular Rate and S1/S2
Pulmonary: Other (Right lung crackles, left decreased BS at base + crackles at base)
Gastrointestinal: Soft, Non Tender, Non Distended and Normal Bowel Sounds
Genito-Urinary: Negative CVA Tenderness
Extremities: Negative Edema
Neurological: AO x 3
Lab / Diagnostic Study Results
05/05/24 07:04
05/05/24 07:04
Abs Immat Gran (auto) 0.1 10^3/uL (0-0.05) H 04/30/24 04:43
Absolute Neuts (auto) 15.4 10^3/uL (1.4-6.5) H 04/30/24 04:43
Absolute Lymphs (auto) 0.4 10^3/uL (1.2-3.4) L 04/30/24 04:43
Absolute Monos (auto) 1.2 10^3/uL (0.1-0.6) H 04/30/24 04:43
Absolute Basos (auto) 0.1 10^3/uL (0-0.2) 04/30/24 04:43
Immature Gran % 0.6 % (0-0.5) H 04/30/24 04:43
Neutrophils % 89.5 % (42.2-75.2) H 04/30/24 04:43
Lymphocytes % 2.5 % (20.5-51.1) L 04/30/24 04:43
Monocytes % 6.8 % (1.7-9.3) 04/30/24 04:43
Eosinophils % 0.1 % (0-6) 04/30/24 04:43
Basophils % 0.5 % (0-2) 04/30/24 04:43
Microbiology Results
Micro:
05/03/24 14:43 Body Fluid Culture - Preliminary
Pleural Fluid No Growth After 48 Hours
Gram Stain - Preliminary
05/01/24 04:06 Respiratory Culture - Final
Sputum Usual Respiratory Dayday
Gram Stain - Final
04/30/24 04:43 Influenza Types A & B (GLENYS) - Final
Nasal Swab Negative for Influenza A & B, NAAT
Negative results must be combined with clinical observations
and patient history.
Nucleic Acid Amplification test (NAAT)performed on the
[employer] platform.
04/30/24 CXR: There is moderate parenchymal air space disease in the right perihilar region extending into the right middle lobe and to a lesser extent into the right upper lobe consistent with pneumonia. There is a small left pleural effusion
1/2/[address]: Moderate left and small right pleural effusion. Mild hilar and mediastinal adenopathy, not present previously. Pulmonary parenchymal disease process, consistent with pneumonia in the posterior segment right upper lobe, right lower
lobe, and lingula.
05/05/24 CXR: Bilateral pleural fluid, small left and trace right. Patchy pulmonary parenchymal opacities suggestive of pneumonia. Cardiomediastinal enlargement, as discussed above.
Assessment / Plan
# Bilateral PNA
# Uncomplicated left parapneumonic effusion
Moderate left pleural effusion, small right pleural effusion
s/p left thoracentesis (05/03) 300cc yellow fluid, pH 7.44, 1401 LDH, glucose 88
# Leukocytosis - trending down
# Recent incidental finding of bronchiectasis and pulmonary nodules (11/2023) - follows with pulmonary
- Sputum: usual resp dayday
- Left pleural fluid cx neg to date, cytology pending
- Chech urine legionella Ag and Strep pneumo Ag.
- s/p 5d ceftriaxone/azithromycin
- Can transition to levofloxacin 750mg po daily x 5 more days
- Repeat CXR in 2-3 weeks to follow pleural fluid, infiltrates.
- Follow-up with pulmonary as outpatient.
# New-onset afib
- For cardioversion, per Cardiology.
# Conditions prior to admission
Hypertension
Dyslipidemia
Ascending aorta aneurysm 4.2cm
Heart failure with preserved EF
Lung nodules (11/2023 CT)
Bronchiectasis (11/2023 CT)
Insomnia
History of right breast cancer status post lumpectomy
transanal excision of rectum 2007
right femoral surgery 2021
jaw tumor excision
[2024-05-05] MEDS: LIPITOR 10 MG PO (17:06)
--- NOTE | 2024-05-05 17:45 | PTCARENOTE ---
Assumed care of patient at 3pm. No noted changed in assessment.
[2024-05-05] MEDS: COMPAZINE 2.5 MG IV (18:05)
[2024-05-05 19:15] VITALS: BP 141/99
[2024-05-05] MEDS: AMBIEN 5 MG PO (23:02)
[2024-05-05 23:59] VITALS: BP 131/85
[2024-05-06 03:05] VITALS: BP 129/86
[2024-05-06 07:22] LABS: Hematocrit 35.4 % (37.0-47.0); Hemoglobin 11.7 g/dL (12.0-16.0); Mean Corp Hgb Conc. 33.1 g/dL (33.0-37.0); Mean Corpuscular Hgb 30.7 pg (27.0-31.0); Mean Corpuscular Volume 92.9 fL (81.0-99.0); Platelet Count 345 10^3/uL (130-400); Red Blood Cell Count 3.81 10^6/uL (4.20-5.40); Red Cell Dist. Width 14.7 % (11.5-14.5); White Blood Cell Count 11.6 10^3/uL (4.8-10.8)
[2024-05-06 07:45] VITALS: BP 146/88
[2024-05-06] MEDS: ZESTRIL 40 MG PO (07:55)
[2024-05-06] MEDS: LEVAQUIN 750 MG PO (07:56)
[2024-05-06] MEDS: KLOR-CON 20 MEQ PO (07:56)
[2024-05-06] MEDS: ELIQUIS 5 MG PO ×2 (07:56→20:49)
[2024-05-06] MEDS: TOPROL XL 50 MG PO ×2 (07:56→10:43)
[2024-05-06] MEDS: OCUVITE SOFTGEL 1 CAP PO ×2 (07:56→20:49)
[2024-05-06 08:04] LABS: Blood Urea Nitrogen 19 mg/dl (7-17); Carbon Dioxide 28 mmol/L (22-30); Chloride 102 mmol/L (98-107); Estimated Creatinine Clearance 65 ml/min; Glucose 98 mg/dl (70-99); Sodium 138 mmol/L (135-145); eGFR > 60.00
--- NOTE | 2024-05-06 10:40 | W.PN.CARDCBS ---
Addendum entered and electronically signed by Natalio Arcos MD 05/06/24 12:08:
I saw and examined the patient.
The STRADDLE BUG or PA's note was reviewed and I agree with the note.
Comment: General: Well developed, well nourished in NAD.
Neck: Supple, no JVD, HJR, carotids +2 B/L, no bruits bilaterally.
Heart: Non displaced PMI, irregular, tachycardic, no murmurs, No S3, S4, no rubs.
Lungs: Crackles at the right base
Extremities: No clubbing, cyanosis or edema bilaterally.
Neuro: Grossly nonfocal, awake, alert and oriented x3.
She remains hypoxic. Will try IV Lasix. Check proBNP. Check echo. Heart rate control poor in A-fib and will decrease Toprol and add amiodarone.
Eventual KIYA cardioversion prior to discharge. Would like to see her off oxygen first.
Original Note:
Today's Communication / Plan
-
Remains in rapid afib
Toprol increased to 100mg BID
Add amiodarone 200mg TID and follow QTc
s/p IV lasix 40mg x 1
Echo pending
Eventual KIYA/CV
Impression / Plan
-
Superintendent Colliery: Dr. PREETI Barr
Impression:
Presented with hoarseness and fever
Atrial fibrillation - newly diagnosed
Pneumonia
Parapneumonic effusion status post thoracentesis
h/o aortic aneurysm/CT of chest with 4.2 cm and ascending aorta 05/2024
Hypertension
Hypercholesterolemia
History of breast cancer
Anemia
Lexiscan mibi 11/2021: fixed apical anterior defect consistent with soft tissue attenuation.
CT of chest 05/2024 with ascending aortic aneurysm measuring 4.2 cm
Echo 12/20/2021: EF 50%, proximal ascending aorta 4.5 cm, moderate AI
Echo 05/06/2023: Study pending
Plan:
-Presented with fever and hoarseness. Admitted with pneumonia.
-Noted to go into atrial fibrillation on review of telemetry - new diagnosis.
-Remains in rapid afib 05/06. Toprol dose increased to 100mg BID and rates remain elevated into the 140s,150s at times. Will add amiodarone 200mg TID.
-Follow QTc as on levaquin. QTc 422 ms 05/04. Will check ECG now and follow up in AM.
-New to Eliquis 5mg BID.
-Echo pending 05/06. Prior echo 11/2021 with EF 50%.
-K stable after starting on supplementation. Check TSH
-Plan is for KIYA/CV prior to discharge once improved/recovered from pneumonia.
-LE edema noted. Will give a dose of IV lasix 40mg x1 05/06.
-Continue abx per primary service/ID.
-On 2L NC. Wean as able
HPI: Natalia has a history of hypertension, aortic insufficiency, nonischemic cardiomyopathy which has resolved, ascending aortic aneurysm, hyperglycemia, right breast cancer. She presented with hoarseness and fever and found to have pneumonia. She
is found to be in A-fib on EKG cardiology consulted. She has had some palpitations. She denies chest pain or shortness of breath.
Progress Note - Superintendent Colliery
Subjective
Date of Service: May 06, 2024
No complaints. Feeling well
Objective
Labs:
05/06/24 06:23
05/06/24 06:23
Labs
Hgb 11.7 g/dL (12.0-16.0) L 05/06/24 06:23
Hct 35.4 % (37.0-47.0) L 05/06/24 06:23
Plt Count 345 10^3/uL (130-400) 05/06/24 06:23
Sodium 138 mmol/L (135-145) 05/06/24 06:
Potassium 4.0 mmol/L (3.5-5.1) 05/06/24 06:23
BUN 19 mg/dl (7-17) H 05/06/24 06:23
Creatinine 0.5 mg/dL (0.6-1.0) L 05/06/24 06:23
Glucose 98 mg/dl (70-99) 05/06/24 06:23
Vital Signs and I&O:
Vital Signs
Temp Pulse Resp BP Pulse Ox
98.1 F 86 20 146/88 93
05/06/24 07:45 05/06/24 07:55 05/06/24 07:45 05/06/24 07:55 05/06/24 08:00
Vital Signs
Temp Pulse Resp BP Pulse Ox
98.1 F 86 20 146/88 93
05/06/24 07:45 05/06/24 07:55 05/06/24 07:45 05/06/24 07:55 05/06/24 08:00
Intake & Output
05/04/24 05/05/24 05/06/24 05/07/24
06:59 06:59 06:59 06:59
Intake Total 720 / 720 720 / 720 480 / 480
Output Total 220 / 220
Balance 720 / 720 720 / 720 260 / 260
Physical Exam
Physical Exam
GEN: No distress, awake, alert, oriented x3
HEENT: supple, anicteric, mmm
LUNGS: scattered rhonchi, no wheezes
CV: irregularly irregular, S1/S2, no murmur
EXT: No clubbing or cyanosis, trace edema b/l LE
NEURO: Gross non-focal
SKIN: Warm, dry, no rash
[2024-05-06] MEDS: LASIX 40 MG IV (10:43)
[2024-05-06 11:00] VITALS: BP 166/95
--- NOTE | 2024-05-06 11:00 | W.PN.HOSP.TC ---
Today's Communication/Plan
-
Beta nati increased given rapid A-Fib
Amio added
Continue Levofloxacin
QTc monitoring given Levofloxacin and Amio
Assessment / Plan
Assessment / Plan
Physical Exam
General: Well Developed, Well Nourished and Comfortable
HEENT: Normocephalic, Atraumatic, Moist Mucous Membranes
Respiratory: CTAB
Cardiac: S1/S2. Irregular Rhythm.
GI: Soft, Nontender, Nondistended and Normal Bowel Sounds
Musculoskeletal: No Cyanosis and No Edema
Skin: Warm
Neuro: Awake, Alert, Oriented, AAO x 3 and No Motor Deficits
Psych: Calm
Assessment/Plan
89 woman with CA-PNA and hyponatremia.
Severe sepsis with acute organ dysfunction secondary to pneumonia
Patient met sepsis criteria on admission
Heart rate still significantly elevated
WBCs was elevated on admission at 17.3
Source of infection is pneumonia
Previously was on Rocephin, Unasyn, Zithromax.
Continue Levofloxacin 750mg po daily x 4 more days - repeat CXR in 2-3 weeks to follow pleural fluid, infiltrates.
QTc monitoring important given Levofloxacin plus Amiodarone.
sputum culture shows normal dayday
Negative influenza
05/03
CT scan result:
No evidence of pulmonary embolism.
Progressive fusiform dilatation of the main pulmonary artery, with associated elevated right-sided heart pressure/pulmonary artery hypertension.
Stable fusiform aneurysmal dilatation of the ascending aorta measuring up to 4.2 cm.
Moderate left and small right pleural effusion.
Mild hilar and mediastinal adenopathy, not present previously.
Pulmonary parenchymal disease process, consistent with pneumonia in the posterior segment right upper lobe, right lower lobe, and lingula.
IR consulted for thoracentesis, eventually patient had left thoracentesis with removal of 300 cc -- effusion is exudative
Acute Hypoxic Respiratory Failure
-IV Lasix
Parapneumonic pleural effusion.
Status post thoracentesis
Atrial Fibrillation
Increase Metoprolol further to 100 mg BID
Add Amiodarone 200 mg TID
New Medication: Eliquis
Echocardiogram
Might consider cardioversion prior to discharge to reassess as an outpatient when has recovered from pneumonia
Appreciate cardiology
History of hypertension.
Patient on lisinopril/hydrochlorothiazide/metoprolol/amlodipine at home.
Secondary to constant tachycardia metoprolol increased and amlodipine discontinued.
Consider resume amlodipine if blood pressure starts to be elevated
Musculoskeletal chest pain with cough
Improved
History of aortic aneurysm.
Stable
Hyponatremia
Resolved
Hypokalemia.
Replaced
CODE STATUS: Full code
DVT prophylaxis: Eliquis
Diet: Regular diet
Anticipated Discharge: > 48 hours
Subjective/Interval History
-
Date of Service: May 06, 2024
Patient was seen and examined. She denied any new kind of chest pain or shortness of breath.
Objective Data
-
Labs:
Laboratory Results
05/06/24
06:23
WBC 11.6 H
Hgb 11.7 L
Hct 35.4 L
Plt Count 345
Sodium 138
Potassium 4.0
Chloride 102
Carbon Dioxide 28
BUN 19 H
Creatinine 0.5 L
Glucose 98
Calcium 8.0 L
Vital Signs:
Vital Signs
Temp Pulse Resp BP Pulse Ox
98.2 F 123 18 166/95 100
05/06/24 11:00 05/06/24 11:00 05/06/24 11:00 05/06/24 11:00 05/06/24 11:00
I&O
05/05/24 05/06/24 05/07/24
06:59 06:59 06:59
Intake Total 720 / 720 480 / 480
Output Total 220 / 220
Balance 720 / 720 260 / 260
--- NOTE | 2024-05-06 11:59 | RESPNOTE ---
Order received for home o2 assessment. Pt received on 2L. O2 taken off. on room air spo2 91% at rest. HR initially 108 but quickly jumped to 144-150 with talking. RN at bedside; medication for HR given prior to RT arrival. Pt states she feels winded
and light headed when attempting to walk w/o o2 and did not feel comfortable ambulating when HR was elevated. MD Tyson notified.
[2024-05-06] MEDS: PACERONE 200 MG PO ×3 (12:33→22:51)
[2024-05-06 12:57] LABS: TSH Reflex To Free T4 2.36 uIU/ml (0.47-4.68)
--- NOTE | 2024-05-06 13:03 | W.PN.ID1 ---
Date of Service
Date of Service: May 06, 2024
Today's Communication
Continue levofloxacin.
Assessment / Plan
# Bilateral PNA
# Uncomplicated left parapneumonic effusion
Moderate left pleural effusion, small right pleural effusion
s/p left thoracentesis (05/03) 300cc yellow fluid, pH 7.44, 1401 LDH, glucose 88
# Leukocytosis - trending down
# Recent incidental finding of bronchiectasis and pulmonary nodules (11/2023) - follows with pulmonary
- Sputum: usual resp dayday
- Left pleural fluid cx neg to date, cytology pending
- Chech urine legionella Ag and Strep pneumo Ag.
- s/p 5d ceftriaxone/azithromycin
- Continue levofloxacin 750mg po daily x 5 more days
- Repeat CXR in 2-3 weeks to follow pleural fluid, infiltrates.
- Follow-up with pulmonary as outpatient.
# New-onset afib
- For cardioversion, per Cardiology.
# Conditions prior to admission
Hypertension
Dyslipidemia
Ascending aorta aneurysm 4.2cm
Heart failure with preserved EF
Lung nodules (11/2023 CT)
Bronchiectasis (11/2023 CT)
Insomnia
History of right breast cancer status post lumpectomy
transanal excision of rectum 2007
right femoral surgery 2021
jaw tumor excision
Chief Complaint
-: Pneumonia
Subjective / Review of Systems
Cough now more productive.
left chest pain improving.
Tachycardic with movement.
Vital Signs / Physical Exam
Vital Signs
Vital Signs
Temp Pulse Resp BP Pulse Ox
98.2 F 128 18 138/99 93
05/06/24 11:00 05/06/24 12:33 05/06/24 11:00 05/06/24 12:33 05/06/24 11:04
Physical Exam
Constitutional: No Acute Distress
Cardiovascular: Irregular Rate and Other (tachy)
Pulmonary: Other (Right lung crackles, left base coarse BS)
Gastrointestinal: Soft, Non Tender, Non Distended and Normal Bowel Sounds
Neurological: AO x 3
Objective Data
Lab Data
Lab Results
05/06/24 06:23
05/06/24 06:23
Estimated Creat Clear 65 ml/min 05/06/24 06:23
Total Bilirubin 1.5 mg/dl (0.2-1.3) H 04/30/24 04:43
AST 24 U/L (14-36) 04/30/24 04:43
ALT 23 U/L (0-35) 04/30/24 04:43
Alkaline Phosphatase 82 U/L (38-126) 04/30/24 04:43
Most recent labs reviewed.
Micro Results:
05/03/24 14:43 Body Fluid Culture - Final
Pleural Fluid No Growth After 72 Hours
Gram Stain - Final
05/05/24 17:07 Streptococcus pneumoniae Antigen (M - Final
Urine Negative for Streptococcus pneumoniae antigen.
A negative result does not exclude infection with
Streptococcus pneumoniae. Clinical correlation is
recommended.
05/05/24 17:06 Legionella Urinary Antigen - Final
Urine Negative for Legionella pneumophila Serogroup 1 antigen.
A negative result does not rule out the possiblity of
Legionella infection due to other serogroups or species of
Legionella. Clinical correlation is recommended.
05/01/24 04:06 Respiratory Culture - Final
Sputum Usual Respiratory Dayday
Gram Stain - Final
04/30/24 04:43 Influenza Types A & B (GLENYS) - Final
Nasal Swab Negative for Influenza A & B, NAAT
Negative results must be combined with clinical observations
and patient history.
Nucleic Acid Amplification test (NAAT)performed on the
[employer] platform.
04/30/24 CXR: There is moderate parenchymal air space disease in the right perihilar region extending into the right middle lobe and to a lesser extent into the right upper lobe consistent with pneumonia. There is a small left pleural effusion
05/02/[address]: Moderate left and small right pleural effusion. Mild hilar and mediastinal adenopathy, not present previously. Pulmonary parenchymal disease process, consistent with pneumonia in the posterior segment right upper lobe, right lower
lobe, and lingula.
05/05/24 CXR: Bilateral pleural fluid, small left and trace right. Patchy pulmonary parenchymal opacities suggestive of pneumonia. Cardiomediastinal enlargement, as discussed above.
[2024-05-06 15:19] VITALS: BP 131/99
[2024-05-06] MEDS: LIPITOR 10 MG PO (17:12)
[2024-05-06 19:39] VITALS: BP 138/95
[2024-05-06] MEDS: TOPROL XL 100 MG PO (20:50)
[2024-05-06] MEDS: AMBIEN 5 MG PO (23:06)
[2024-05-06 23:34] VITALS: BP 146/97
[2024-05-07] VITALS (8 sets, daily range): BP systolic 115–146; BP diastolic 67–96; PULSE 99–121; O2SAT 95
[2024-05-07] MEDS: ROBITUSSIN 200 MG PO (00:37)
[2024-05-07 08:42] LABS: Hematocrit 35.5 % (37.0-47.0); Hemoglobin 11.9 g/dL (12.0-16.0); Mean Corp Hgb Conc. 33.5 g/dL (33.0-37.0); Mean Corpuscular Hgb 31.2 pg (27.0-31.0); Mean Corpuscular Volume 93.2 fL (81.0-99.0); Mean Platelet Volume 9.1 fL (7.4-10.4); Platelet Count 369 10^3/uL (130-400); Red Blood Cell Count 3.81 10^6/uL (4.20-5.40); Red Cell Dist. Width 14.6 % (11.5-14.5); White Blood Cell Count 13.4 10^3/uL (4.8-10.8)
[2024-05-07] MEDS: ELIQUIS 5 MG PO ×2 (09:09→22:04)
[2024-05-07] MEDS: TOPROL XL 100 MG PO ×2 (09:09→22:04)
[2024-05-07] MEDS: ZESTRIL 40 MG PO (09:09)
[2024-05-07] MEDS: LEVAQUIN 750 MG PO (09:10)
[2024-05-07] MEDS: OCUVITE SOFTGEL 1 CAP PO ×2 (09:10→22:04)
[2024-05-07] MEDS: PACERONE 200 MG PO ×3 (09:11→22:56)
[2024-05-07] MEDS: KLOR-CON 20 MEQ PO (09:11)
[2024-05-07 09:20] LABS: Blood Urea Nitrogen 18 mg/dl (7-17); Calcium 8.1 mg/dl (8.4-10.2); Carbon Dioxide 29 mmol/L (22-30); Chloride 99 mmol/L (98-107); Estimated Creatinine Clearance 65 ml/min; Glucose 95 mg/dl (70-99); Magnesium 2.1 mg/dl (1.6-2.3); Potassium 3.9 mmol/L (3.5-5.1); Sodium 137 mmol/L (135-145); eGFR > 60.00
[2024-05-07 09:22] LABS: NT-proBNP 5630 pg/ml
--- NOTE | 2024-05-07 13:07 | W.PN.ID1 ---
Date of Service
Date of Service: May 07, 2024
Today's Communication
Replace levofloxacin with cefuroxime.
Assessment / Plan
# Bilateral PNA
# Uncomplicated left parapneumonic effusion
Moderate left pleural effusion, small right pleural effusion
s/p left thoracentesis (05/03) 300cc yellow fluid, pH 7.44, 1401 LDH, glucose 88
# Leukocytosis - trended up today
# Recent incidental finding of bronchiectasis and pulmonary nodules (11/2023) - follows with pulmonary
- Sputum: usual resp dayday
- Left pleural fluid cx neg , cytology pending
- urine legionella Ag and Strep pneumo Ag negative
- s/p 5d ceftriaxone/azithromycin
- c/o GI upset. DC levofloxacin (d2).
Replace levofloxacin with Cefuroxime 500mg po bid till 05/09/24
- Repeat CXR in 2-3 weeks to follow pleural fluid, infiltrates.
- Trend wbc.
# New-onset afib
- For cardioversion, per Cardiology.
# Conditions prior to admission
Hypertension
Dyslipidemia
Ascending aorta aneurysm 4.2cm
Heart failure with preserved EF
Lung nodules (11/2023 CT)
Bronchiectasis (11/2023 CT)
Insomnia
History of right breast cancer status post lumpectomy
transanal excision of rectum 2007
right femoral surgery 2021
jaw tumor excision
Chief Complaint
-: Pneumonia
Subjective / Review of Systems
c/o stomach upset and loose stools.
Vital Signs / Physical Exam
Vital Signs
Vital Signs
Temp Pulse Resp BP Pulse Ox
97.8 F 100 18 123/95 95
05/07/24 11:06 05/07/24 11:06 05/07/24 11:06 05/07/24 11:06 05/07/24 11:06
Physical Exam
Constitutional: No Acute Distress
Cardiovascular: Irregular Rate
Pulmonary: Other (Right lung crackles, left base coarse BS)
Gastrointestinal: Soft, Non Tender and Non Distended
Extremities: Negative Edema
Neurological: AO x 3
Objective Data
Lab Data
Lab Results
05/07/24 07:03
05/07/24 07:03
Estimated Creat Clear 65 ml/min 05/07/24 07:03
Total Bilirubin 1.5 mg/dl (0.2-1.3) H 04/30/24 04:43
AST 24 U/L (14-36) 04/30/24 04:43
ALT 23 U/L (0-35) 04/30/24 04:43
Alkaline Phosphatase 82 U/L (38-126) 04/30/24 04:43
Most recent labs reviewed.
Micro Results:
05/03/24 14:43 Body Fluid Culture - Final
Pleural Fluid No Growth After 72 Hours
Gram Stain - Final
05/05/24 17:07 Streptococcus pneumoniae Antigen (M - Final
Urine Negative for Streptococcus pneumoniae antigen.
A negative result does not exclude infection with
Streptococcus pneumoniae. Clinical correlation is
recommended.
05/05/24 17:06 Legionella Urinary Antigen - Final
Urine Negative for Legionella pneumophila Serogroup 1 antigen.
A negative result does not rule out the possiblity of
Legionella infection due to other serogroups or species of
Legionella. Clinical correlation is recommended.
05/01/24 04:06 Respiratory Culture - Final
Sputum Usual Respiratory Dayday
Gram Stain - Final
04/30/24 04:43 Influenza Types A & B (GLENYS) - Final
Nasal Swab Negative for Influenza A & B, NAAT
Negative results must be combined with clinical observations
and patient history.
Nucleic Acid Amplification test (NAAT)performed on the
[employer] platform.
04/30/24 CXR: There is moderate parenchymal air space disease in the right perihilar region extending into the right middle lobe and to a lesser extent into the right upper lobe consistent with pneumonia. There is a small left pleural effusion
05/02/[address]: Moderate left and small right pleural effusion. Mild hilar and mediastinal adenopathy, not present previously. Pulmonary parenchymal disease process, consistent with pneumonia in the posterior segment right upper lobe, right lower
lobe, and lingula.
05/05/24 CXR: Bilateral pleural fluid, small left and trace right. Patchy pulmonary parenchymal opacities suggestive of pneumonia. Cardiomediastinal enlargement, as discussed above.
--- NOTE | 2024-05-07 13:36 | W.PN.CARDCBS ---
Addendum entered and electronically signed by Sidney Valencia MD 05/07/24 14:52:
Attending addendum: Patient seen and examined. She is sitting in a chair looking at her phone and texting. She is in no acute distress and states that she feels well. She states her breathing is much better. She is unaware of any rhythm changes.
GEN: AAO x 3.��Pleasant and conversant. No acute distress
HEENT:��NC/AT, sclera are anicteric
LUNGS: Clear bilaterally. No wheezing
CV: Irregularly irregular and tachycardic. Heart sounds are distant and no obvious murmur is noted.
EXT: No CCE
NEURO: No focal neurologic deficits
RECOMMENDATION:
-Atrial fibrillation with rapid ventricular response
On oral anticoagulation: Eliquis 5 mg p.o. twice daily
Metoprolol outpatient dose was 25 mg daily and has been increased to 100 mg p.o. twice daily. Heart rate still suboptimally controlled but the higher doses of metoprolol just started
Amiodarone 200 mg p.o. 3 times daily started yesterday as well. Patient has received 3-4 doses.
Eventual KIYA cardioversion
Original Note:
Today's Communication / Plan
-
IV lasix
echo
continue toprol, amio, eliquis
for KIYA/CV prior to DC once respiratory status optimized
Impression / Plan
-
Health And Wellness Instructor: Dr. PREETI Barr
Impression:
Presented with hoarseness and fever
Atrial fibrillation with RVR - newly diagnosed
Pneumonia
Parapneumonic effusion status post thoracentesis
h/o aortic aneurysm/CT of chest with 4.2 cm and ascending aorta 05/2024
Hypertension
Hypercholesterolemia
History of breast cancer
Anemia
Lexiscan mibi 11/2021: fixed apical anterior defect consistent with soft tissue attenuation.
CT of chest 05/2024 with ascending aortic aneurysm measuring 4.2 cm
Echo 12/20/2021: EF 50%, proximal ascending aorta 4.5 cm, moderate AI
Echo 05/07/2023: Study pending
Plan:
-she is being treated for PNA per primary service/ID. will add probiotic as patient reports stomach upset/poor appetite from abx.
-afib new diagnosis this admission. remains in afib with suboptimal rate control on review of tele overnight. OP toprol dose increased from 25mg QPM to 100mg BID and amiodarone 200mg TID added 05/06.
-follow QTc as also on levaquin. QTc stable by EKG 05/07
-New to Eliquis 5mg BID.
-Echo pending 05/07. Prior echo 11/2021 with EF 50%.
-plan for KIYA/CV prior to DC once respiratory status optimized.
-remains with PARR and conversational dyspnea on exam today as well as LLE edema. proBNP 5630. received IV lasix 40mg yesterday, will give again today. Cr stable
-TSH WNL
-PT/OT
HPI: Natalia has a history of hypertension, aortic insufficiency, nonischemic cardiomyopathy which has resolved, ascending aortic aneurysm, hyperglycemia, right breast cancer. She presented with hoarseness and fever and found to have pneumonia. She
is found to be in A-fib on EKG cardiology consulted. She has had some palpitations. She denies chest pain or shortness of breath.
Progress Note - Health And Wellness Instructor
Subjective
Date of Service: May 07, 2024
reports some improvement in her breathing from admission, however still does not feel at baseline. reports conversational dyspnea, PARR, and LLE edema. also reports stomach upset and poor appetite.
Objective
Labs:
05/07/24 07:03
05/07/24 07:03
Labs
Hgb 11.9 g/dL (12.0-16.0) L 05/07/24 07:03
Hct 35.5 % (37.0-47.0) L 05/07/24 07:03
Plt Count 369 10^3/uL (130-400) 05/07/24 07:03
Sodium 137 mmol/L (135-145) 05/07/24 07:03
Potassium 3.9 mmol/L (3.5-5.1) 05/07/24 07:03
BUN 18 mg/dl (7-17) H 05/07/24 07:03
Creatinine 0.6 mg/dL (0.6-1.0) 05/07/24 07:03
Glucose 95 mg/dl (70-99) 05/07/24 07:03
Vital Signs and I&O:
Vital Signs
Temp Pulse Resp BP Pulse Ox
97.8 F 100 18 123/95 95
05/07/24 11:06 05/07/24 11:06 05/07/24 11:06 05/07/24 11:06 05/07/24 11:06
Vital Signs
Temp Pulse Resp BP Pulse Ox
97.8 F 100 18 123/95 95
05/07/24 11:06 05/07/24 11:06 05/07/24 11:06 05/07/24 11:06 05/07/24 11:06
Intake & Output
05/05/24 05/06/24 05/07/24 05/08/24
07:59 07:59 07:59 07:59
Intake Total 720 / 720 480 / 480 1200 / 1200 420 / 420
Output Total 220 / 220
Balance 720 / 720 260 / 260 1200 / 1200 420 / 420
Physical Exam
Physical Exam
GEN: No distress, awake, alert, oriented x3. sitting in chair
HEENT: supple, anicteric, mmm, eomi
LUNGS: Decreased BS B/L, few wheezes
CV: Irreg irreg, S1/S2, 1/6 murmur
ABD: soft, BS+, NT/ND
EXT: No cyanosis, clubbing. trace edema of B/L LE
NEURO: Gross non-focal
SKIN: Warm, pink, dry. No rash
[2024-05-07] MEDS: VISBIOME 1 CAP PO (13:48)
[2024-05-07] MEDS: LASIX 40 MG IV (13:48)
--- NOTE | 2024-05-07 16:19 | CM ---
Addendum entered by Claudia Denson 05/07/24 16:25:
Pt is known to [facility] from previous encounter; Natalia would like [facility] to follow her at [facility]. VN aware of pt needs and following for discharge.
Original Note:
CM continues to follow for discharge planning; pt wants to return home to [facility] () [facility]. PT and OT notes updated today and anticipate Natalia will be able to return to her apartment; Home Care recommended.
It appears that Natalia will not need O2 at discharge; CM will continue to follow for updated discharge needs.
[2024-05-07] MEDS: LIPITOR 10 MG PO (16:48)
--- NOTE | 2024-05-07 19:13 | W.PN.HOSP.TC ---
Today's Communication/Plan
-
Continue IV Lasix
Cardioversion being considered
Continue antibiotics
Assessment / Plan
Assessment / Plan
Physical Exam
General: Well Developed, Well Nourished and Comfortable
HEENT: Normocephalic, Atraumatic, Moist Mucous Membranes
Respiratory: CTAB. ON ROOM AIR.
Cardiac: S1/S2. Irregular Rhythm.
GI: Soft, Nontender, Nondistended and Normal Bowel Sounds
Musculoskeletal: No Cyanosis and No Edema
Skin: Warm
Neuro: Awake, Alert, Oriented, AAO x 3 and No Motor Deficits
Psych: Calm
Assessment/Plan
89 y/o female with CA-PNA and hyponatremia.
#Severe sepsis with acute organ dysfunction secondary to pneumonia
Patient met sepsis criteria on admission
Heart rate still significantly elevated
WBCs was elevated on admission at 17.3
Source of infection is pneumonia
Previously was on Rocephin, Unasyn, Zithromax.
Levaquin stopped due to GI upset; antibiotics changed to Cefuroxime - repeat CXR in 2-3 weeks to follow pleural fluid, infiltrates.
Amiodarone
sputum culture shows normal dayday
Negative influenza
05/03/[address] scan result:
No evidence of pulmonary embolism.
Progressive fusiform dilatation of the main pulmonary artery, with associated elevated right-sided heart pressure/pulmonary artery hypertension.
Stable fusiform aneurysmal dilatation of the ascending aorta measuring up to 4.2 cm.
Moderate left and small right pleural effusion.
Mild hilar and mediastinal adenopathy, not present previously.
Pulmonary parenchymal disease process, consistent with pneumonia in the posterior segment right upper lobe, right lower lobe, and lingula.
IR consulted for thoracentesis, eventually patient had left thoracentesis with removal of 300 cc -- effusion is exudative, uncomplicated parapneumonic effusion
#Acute Hypoxic Respiratory Failure
-IV Lasix
#Uncomplicated Parapneumonic pleural effusion.
Status post thoracentesis
Continue antibiotics as above
#Atrial Fibrillation with rapid ventricular response
Increased Metoprolol further to 100 mg BID this hospitalization
Continue NEW Amiodarone 200 mg TID
New Medication: Eliquis
Echocardiogram
Might consider cardioversion prior to discharge to reassess as an outpatient when has recovered from pneumonia
Appreciate cardiology
History of hypertension.
Patient on lisinopril/hydrochlorothiazide/metoprolol/amlodipine at home.
Secondary to constant tachycardia metoprolol increased and amlodipine discontinued.
Consider resume amlodipine if blood pressure starts to be elevated
Musculoskeletal chest pain with cough
Improved
History of aortic aneurysm.
Stable
Hyponatremia
Resolved
Hypokalemia.
Replaced
CODE STATUS: Full code
DVT prophylaxis: Eliquis
Diet: Regular diet
Anticipated Discharge: 24 - 48 hours
Subjective/Interval History
-
Date of Service: May 07, 2024
Patient was seen and examined. She denied any chest pain or shortness of breath.
Objective Data
-
Labs:
Laboratory Results
05/07/24
07:03
WBC 13.4 H
Hgb 11.9 L
Hct 35.5 L
Plt Count 369
Sodium 137
Potassium 3.9
Chloride 99
Carbon Dioxide 29
BUN 18 H
Creatinine 0.6
Glucose 95
Calcium 8.1 L
Vital Signs:
Vital Signs
Temp Pulse Resp BP Pulse Ox
98.6 F 90 18 115/67 94
05/07/24 15:16 05/07/24 16:48 05/07/24 15:16 05/07/24 15:16 05/07/24 15:16
I&O
05/06/24 05/07/24 05/08/24
06:59 06:59 06:59
Intake Total 480 / 480 1200 / 1200 660 / 660
Output Total 220 / 220
Balance 260 / 260 1200 / 1200 660 / 660
[2024-05-07] MEDS: AMBIEN 5 MG PO (22:57)
[2024-05-08 03:16] VITALS: BP 142/80
[2024-05-08 06:00] VITALS: BMI 27.0
[2024-05-08 07:30] VITALS: BP 128/73
[2024-05-08 08:23] LABS: Blood Urea Nitrogen 23 mg/dl (7-17); Calcium 8.2 mg/dl (8.4-10.2); Carbon Dioxide 29 mmol/L (22-30); Chloride 101 mmol/L (98-107); Estimated Creatinine Clearance 64 ml/min; Glucose 89 mg/dl (70-99); Magnesium 2.2 mg/dl (1.6-2.3); Potassium 3.8 mmol/L (3.5-5.1); Sodium 137 mmol/L (135-145); eGFR > 60.00
[2024-05-08] MEDS: OCUVITE SOFTGEL 1 CAP PO (09:00)
[2024-05-08] MEDS: ZESTRIL 40 MG PO (09:00)
[2024-05-08] MEDS: VISBIOME 1 CAP PO (09:00)
[2024-05-08] MEDS: CEFTIN 500 MG PO (09:00)
[2024-05-08] MEDS: PACERONE 200 MG PO (09:01)
[2024-05-08] MEDS: TOPROL XL 100 MG PO (09:01)
[2024-05-08] MEDS: ELIQUIS 5 MG PO (09:01)
[2024-05-08] MEDS: KLOR-CON 20 MEQ PO (09:01)
--- NOTE | 2024-05-08 10:31 | W.PN.CARDCBS ---
Addendum entered and electronically signed by Jorge Holguin MD 05/08/24 11:18:
I saw and examined the patient.
The Ironworker Foreman's note was reviewed and I agree with the note.
Comment: Briefly, 89-year-old woman presenting with pneumonia found to have atrial fibrillation with rapid ventricular response which is a new diagnosis as well as heart failure with preserved ejection fraction
Improvement in her respiratory status with IV Lasix, thoracentesis and antibiotics
Plan to transition to p.o. Lasix today, she is breathing comfortably on room air
In regards to new atrial fibrillation, she spontaneously converted to sinus rhythm yesterday
Would continue amiodarone and metoprolol on discharge
New to Eliquis for cardioembolic prophylaxis
Stable for discharge from my perspective, cardiology follow-up has been arranged
Original Note:
Today's Communication / Plan
-
po lasix 20mg daily
BMP in 1 week
amiodarone 200mg BID for 30 days then decrease to 200mg daily
toprol 25mg BID
eliquis 5mg BID
will arrange OP cardiac follow up
Impression / Plan
-
Sales Associate Fishing: Dr. PREETI Barr
Impression:
Presented with hoarseness and fever
Atrial fibrillation with RVR - newly diagnosed
Pneumonia
Parapneumonic effusion status post thoracentesis
h/o aortic aneurysm/CT of chest with 4.2 cm and ascending aorta 05/2024
Hypertension
Hypercholesterolemia
History of breast cancer
Anemia
Lexiscan mibi 11/2021: fixed apical anterior defect consistent with soft tissue attenuation.
CT of chest 05/2024 with ascending aortic aneurysm measuring 4.2 cm
Echo 12/20/2021: EF 50%, proximal ascending aorta 4.5 cm, moderate AI
Echo 05/07/2023: EF 50 to 55%, mild concentric LVH, mild MR, mild to moderate AR, mild TR, PAP 30 to 35 mmHg, dilated aortic root, no significant change compared to prior
Plan:
-She reports improvement in breathing overnight with IV Lasix 40 mg x 2 in the last 48 hours. Cr stable. would plan for 20mg po lasix daily upon DC, was not on diuretic prior to admission
-She spontaneously converted to sinus rhythm yesterday afternoon and remains in sinus rhythm on telemetry overnight. Will plan to decrease amiodarone to 200 mg twice daily for 30 days then decrease to 200 mg daily.
-Currently on Toprol 100 mg twice daily, increased from 25 mg every afternoon. as now back in SR with HRs in 60s, will plan to decrease toprol dose to 25mg BID for DC
-QTc stable by EKG 05/08
-New to Eliquis 5mg BID.
-Echo with results as above. Prior echo 11/2021 with EF 50%.
-BMP in 1 week upon DC
-TSH WNL
-PT/OT
-will arrange OP cardiac follow up. ok for DC to home today from cardiac standpoint
-d/w nursing. d/w family at bedside
HPI: Natalia has a history of hypertension, aortic insufficiency, nonischemic cardiomyopathy which has resolved, ascending aortic aneurysm, hyperglycemia, right breast cancer. She presented with hoarseness and fever and found to have pneumonia. She
is found to be in A-fib on EKG cardiology consulted. She has had some palpitations. She denies chest pain or shortness of breath.
Progress Note - Sales Associate Fishing
Subjective
Date of Service: May 08, 2024
feeling much improved. reports more energy
Objective
Labs:
05/07/24 07:03
05/08/24 07:24
Labs
Hgb 11.9 g/dL (12.0-16.0) L 05/07/24 07:03
Hct 35.5 % (37.0-47.0) L 05/07/24 07:03
Plt Count 369 10^3/uL (130-400) 05/07/24 07:03
Sodium 137 mmol/L (135-145) 05/08/24 07:24
Potassium 3.8 mmol/L (3.5-5.1) 05/08/24 07:24
BUN 23 mg/dl (7-17) H 05/08/24 07:24
Creatinine 0.6 mg/dL (0.6-1.0) 05/08/24 07:24
Glucose 89 mg/dl (70-99) 05/08/24 07:24
Vital Signs and I&O:
Vital Signs
Temp Pulse Resp BP Pulse Ox
98.5 F 73 18 128/73 94
05/08/24 07:30 05/08/24 09:01 05/08/24 07:30 05/08/24 07:30 05/08/24 09:10
Vital Signs
Temp Pulse Resp BP Pulse Ox
98.5 F 73 18 128/73 94
05/08/24 07:30 05/08/24 09:01 05/08/24 07:30 05/08/24 07:30 05/08/24 09:10
Intake & Output
05/06/24 05/07/24 05/08/24 05/09/24
07:59 07:59 07:59 07:59
Intake Total 480 / 480 1200 / 1200 900 / 900
Output Total 220 / 220 175 / 175
Balance 260 / 260 1200 / 1200 725 / 725
Physical Exam
Physical Exam
GEN: No distress, awake, alert, oriented x3
HEENT: supple, anicteric, mmm, eomi
LUNGS: Decreased LLB, no wheezes
CV: Reg, S1/S2, 1/6 murmur
ABD: soft, BS+, NT/ND
EXT: No cyanosis, clubbing. trace edema of RLE
NEURO: Gross non-focal
SKIN: Warm, pink, dry. No rash
[2024-05-08 11:25] VITALS: BP 118/85
[2024-05-08] MEDS: LASIX 20 MG PO (11:45)
--- NOTE | 2024-05-08 14:38 | W.PN.ID1 ---
Date of Service
Date of Service: May 08, 2024
Today's Communication
Continue Cefuroxime 500mg po bid through 05/09/24
Assessment / Plan
# Bilateral PNA - resolving
# Uncomplicated left parapneumonic effusion
Moderate left pleural effusion, small right pleural effusion
s/p left thoracentesis (05/03) 300cc yellow fluid, pH 7.44, 1401 LDH, glucose 88
# Leukocytosis
# Recent incidental finding of bronchiectasis and pulmonary nodules (11/2023) - follows with pulmonary
- Sputum: usual resp dayday
- Left pleural fluid cx neg , cytology pending
- urine legionella Ag and Strep pneumo Ag negative
- s/p 5d ceftriaxone/azithromycin
Continue Cefuroxime 500mg po bid through 05/09/24
- Repeat CXR in 2-3 weeks to follow pleural fluid, infiltrates.
- Follow-up with Pulmonary
# New-onset afib, now in sinus.
# Conditions prior to admission
Hypertension
Dyslipidemia
Ascending aorta aneurysm 4.2cm
Heart failure with preserved EF
Lung nodules (11/2023 CT)
Bronchiectasis (11/2023 CT)
Insomnia
History of right breast cancer status post lumpectomy
transanal excision of rectum 2007
right femoral surgery 2021
jaw tumor excision
Chief Complaint
-: Pneumonia
Subjective / Review of Systems
Feels much improved. No more left side chest pain. Cough resolving.
Vital Signs / Physical Exam
Vital Signs
Vital Signs
Temp Pulse Resp BP Pulse Ox
98.3 F 67 18 118/85 97
05/08/24 11:25 05/08/24 11:25 05/08/24 11:25 05/08/24 11:25 05/08/24 11:25
Physical Exam
Constitutional: No Acute Distress and Comfortable
Cardiovascular: Regular Rate and S1/S2
Pulmonary: Rales (mild crackles right base)
Extremities: Negative Edema
Neurological: AO x 3
Objective Data
Lab Data
Lab Results
05/07/24 07:03
05/08/24 07:24
Estimated Creat Clear 64 ml/min 05/08/24 07:24
Total Bilirubin 1.5 mg/dl (0.2-1.3) H 04/30/24 04:43
AST 24 U/L (14-36) 04/30/24 04:43
ALT 23 U/L (0-35) 04/30/24 04:43
Alkaline Phosphatase 82 U/L (38-126) 04/30/24 04:43
Most recent labs reviewed.
Micro Results:
05/03/24 14:43 Body Fluid Culture - Final
Pleural Fluid No Growth After 72 Hours
Gram Stain - Final
05/05/24 17:07 Streptococcus pneumoniae Antigen (M - Final
Urine Negative for Streptococcus pneumoniae antigen.
A negative result does not exclude infection with
Streptococcus pneumoniae. Clinical correlation is
recommended.
05/05/24 17:06 Legionella Urinary Antigen - Final
Urine Negative for Legionella pneumophila Serogroup 1 antigen.
A negative result does not rule out the possiblity of
Legionella infection due to other serogroups or species of
Legionella. Clinical correlation is recommended.
05/01/24 04:06 Respiratory Culture - Final
Sputum Usual Respiratory Dayday
Gram Stain - Final
04/30/24 04:43 Influenza Types A & B (GLENYS) - Final
Nasal Swab Negative for Influenza A & B, NAAT
Negative results must be combined with clinical observations
and patient history.
Nucleic Acid Amplification test (NAAT)performed on the
[employer] platform.
04/30/24 CXR: There is moderate parenchymal air space disease in the right perihilar region extending into the right middle lobe and to a lesser extent into the right upper lobe consistent with pneumonia. There is a small left pleural effusion
05/02/[address]: Moderate left and small right pleural effusion. Mild hilar and mediastinal adenopathy, not present previously. Pulmonary parenchymal disease process, consistent with pneumonia in the posterior segment right upper lobe, right lower
lobe, and lingula.
05/05/24 CXR: Bilateral pleural fluid, small left and trace right. Patchy pulmonary parenchymal opacities suggestive of pneumonia. Cardiomediastinal enlargement, as discussed above.
--- NOTE | 2024-05-08 14:40 | W.PN.HOSP.TC ---
Today's Communication/Plan
-
Discharge today
Assessment / Plan
Assessment / Plan
Physical Exam
General: Well Developed, Well Nourished and Comfortable
HEENT: Normocephalic, Atraumatic, Moist Mucous Membranes
Respiratory: CTAB. ON ROOM AIR.
Cardiac: S1/S2. Irregular Rhythm.
GI: Soft, Nontender, Nondistended and Normal Bowel Sounds
Musculoskeletal: No Cyanosis and No Edema
Skin: Warm
Neuro: Awake, Alert, Oriented, AAO x 3 and No Motor Deficits
Psych: Calm
Assessment/Plan
89 y/o female with CA-PNA and hyponatremia.
#Severe sepsis with acute organ dysfunction secondary to pneumonia
Patient met sepsis criteria on admission
Source of infection is pneumonia
Previously was on Rocephin, Unasyn, Zithromax.
Levaquin stopped due to GI upset; antibiotics changed to Cefuroxime - Continue Cefuroxime 500mg po bid through 05/09/24 - repeat CXR in 2-3 weeks to follow pleural fluid, infiltrates.
Amiodarone
05/03/[address] scan result:
No evidence of pulmonary embolism.
Progressive fusiform dilatation of the main pulmonary artery, with associated elevated right-sided heart pressure/pulmonary artery hypertension.
Stable fusiform aneurysmal dilatation of the ascending aorta measuring up to 4.2 cm.
Moderate left and small right pleural effusion.
Mild hilar and mediastinal adenopathy, not present previously.
Pulmonary parenchymal disease process, consistent with pneumonia in the posterior segment right upper lobe, right lower lobe, and lingula.
IR consulted for thoracentesis, eventually patient had left thoracentesis with removal of 300 cc -- effusion is exudative, uncomplicated parapneumonic effusion
#Acute Hypoxic Respiratory Failure
#HFpEF
-PO Lasix 20mg daily
-BMP in 1 week
-IV Lasix
#Uncomplicated Parapneumonic pleural effusion.
Status post thoracentesis
Continue antibiotics as above
#Atrial Fibrillation with rapid ventricular response
Continue Toprol at 25 mg BID
Continue NEW Amiodarone 200mg BID for 30 days then decrease to 200mg daily
New Medication: Eliquis 5 mg BID
Echocardiogram
Might consider cardioversion prior to discharge to reassess as an outpatient when has recovered from pneumonia
Appreciate cardiology
#History of hypertension.
Patient on lisinopril/hydrochlorothiazide/metoprolol/amlodipine at home.
Secondary to constant tachycardia metoprolol increased and amlodipine discontinued.
Consider resume amlodipine if blood pressure starts to be elevated
Musculoskeletal chest pain with cough
Improved
History of aortic aneurysm.
Stable
Hyponatremia
Resolved
Hypokalemia.
Replaced
CODE STATUS: Full code
DVT prophylaxis: Eliquis
Diet: Regular diet
More than 30 minutes spent in discharge including
Final examination of the patient
Summarizing hospital stay
Instructions for continuing care to all relevant caregivers
Preparation of discharge records, prescriptions, and referral forms
Total time spent (in minutes): 38
Anticipated Discharge: Today
Subjective/Interval History
-
Date of Service: May 08, 2024
Patient was seen and examined. She denied any chest pain or shortness of breath.
Objective Data
-
Labs:
Laboratory Results
05/08/24
07:24
Sodium 137
Potassium 3.8
Chloride 101
Carbon Dioxide 29
BUN 23 H
Creatinine 0.6
Glucose 89
Calcium 8.2 L
Vital Signs:
Vital Signs
Temp Pulse Resp BP Pulse Ox
98.3 F 67 18 118/85 97
05/08/24 11:25 05/08/24 11:25 05/08/24 11:25 05/08/24 11:25 05/08/24 11:25
I&O
05/07/24 05/08/24 05/09/24
06:59 06:59 06:59
Intake Total 1200 / 1200 900 / 900
Output Total 175 / 175
Balance 1200 / 1200 725 / 725
--- NOTE | 2024-05-08 14:56 | CM ---
CM continues to follow for pt's return to [facility] () [facility]. Pt and her daughter are anxious for discharge today so pt's prescriptions can be filled and picked up on the way home. Pt's daughter is anxious to ensure medications are able to be
picked up prior to the pharmacy closing.
[2024-05-08 15:48] VITALS: BP 134/81
== END 2024-05-08 16:27 | disposition home health service (06) | DRG 871 ==
LOC: 4 EAST ACU 11:27
PROVIDERS: Emergency Medicine; General Practice; Radiology Vascular & Interventional Radiology; ADMITTING PHYSICIAN Internal Medicine; ATTENDING PHYSICIAN Hospitalist; CONSULT PHYSICIAN Internal Medicine Cardiovascular Disease; CONSULT PHYSICIAN Internal Medicine Infectious Disease; EMERGENCY PHYSICIAN Emergency Medicine; FAMILY PHYSICIAN Physician Assistant Medical
PROC: 0W9B3ZZ Drainage of Left Pleural Cavity, Percutaneous Approach (ICD-10-PCS; 2024-05-03)
DX: A41.9 Sepsis, unspecified organism (principal); J18.9 Pneumonia, unspecified organism; J96.01 Acute respiratory failure with hypoxia; E87.1 Hypo-osmolality and hyponatremia; I42.8 Other cardiomyopathies; I50.32 Chronic diastolic (congestive) heart failure; J91.8 Pleural effusion in other conditions classified elsewhere; R65.20 Severe sepsis without septic shock; I11.0 Hypertensive heart disease with heart failure; E78.2 Mixed hyperlipidemia; E87.6 Hypokalemia; R00.0 Tachycardia, unspecified; I71.40 Abdominal aortic aneurysm, without rupture, unspecified; D64.9 Anemia, unspecified; F51.01 Primary insomnia; I48.91 Unspecified atrial fibrillation; I71.21 Aneurysm of the ascending aorta, without rupture; Z11.52 Encounter for screening for COVID-19; Z79.899 Other long term (current) drug therapy; Z85.3 Personal history of malignant neoplasm of breast
CPT/HCPCS: 88305; 32555; 71045; 71046; 71275; 80048; 80053; 82040; 82150; 82945; 83615; 83735; 83880; 83986; 84157; 84443; 84478; 84484; 85025; 85027; 87015; 87070; 87205; 87449; 87502; 87811; 87899; 88112; 89051; 93005; 93306; 96361; 96365; 96375; 97116; 97162; 97167; 97530; 97535; 99285; Q9967

== ENCOUNTER → 2024-05-28 12:23 | Outpatient (REF) | payer OTHER, SELFPAY | LOC: HWRAD 12:23 | PROVIDERS: ATTENDING PHYSICIAN Nurse Practitioner Adult Health; FAMILY PHYSICIAN Physician Assistant Medical | DX: J18.9 Pneumonia, unspecified organism (principal) | CPT/HCPCS: 71046 ==

== ENCOUNTER 2024-06-07 08:43 | Emergency (ER) | payer OTHER, SELFPAY ==
[2024-06-07 08:45] VITALS: BP 176/100
[2024-06-07 11:01] VITALS: BP 180/97
--- NOTE | 2024-06-07 11:14 | ED.GENMED ---
History of Present Illness
General
Chief Complaint: Blood Pressure Problem
Source: patient
Exam Limitations: none
Time Seen by Provider: 06/07/24 10:56
History of Present Illness
History of Present Illness:
89yoF with a history of hypertension, hyperlipidemia, CHF, and atrial fibrillation presenting for evaluation of elevated blood pressure. Patient was hospitalized in May for pneumonia. She was also found to have new onset atrial fibrillation and
CHF during her hospitalization. She was discharged on metoprolol, amiodarone, Lasix, and Eliquis. Since being discharged, her blood pressure has been persistently high but her blood pressures have been higher over the past week. Her blood pressures
have been ranging from 170-180/90-100. Her heart rate has also been low ranging from the mid 40s-low 50s. She has been discussing this with her pool player and her metoprolol dose was increased to 1.5 tabs BID (up from 1 tab BID). She also took an
extra dose of Lasix yesterday.
Patient has been feeling a sensation in her chest over the past week but she denies any overt pain. She had a headache and dizziness earlier which has since resolved. She states that she feels the best that she has felt all week during initial exam.
Past History
Past History
ED Past Medical History: HTN and Hypercholesterolemia
ED Past Surgical History: None
Social History
Tobacco: Non-smoker
Alcohol: None
Phy Exam
General Physical Exam
General Presentation: well appearing and no apparent distress
General age: appears stated age
General Skin: warm and dry
General Habitus: normal
General Mental: alert
ENT Exam
ENT Exam: normocephalic
Cardiovascular Exam
Cardiovascular Exam: no edema and systolic murmur
Pulmonary Exam
Pulmonary Exam: lungs clear, no respiratory distress, no rales, no crackles, no rhonchi and no wheezing
Neurological Exam
Neurological Exam: alert
Chantal Coma Scale
Eye Opening: Spontaneous
Verbal Response: Oriented
Motor Response: Obeys Commands
GCS Total Score: 15
Skin Exam
Skin Exam: normal color and warm/dry
Psychiatric Exam
Psychiatric Exam: normal mood/affect
Course
Orders/Labs/Results
Orders:
Orders
06/07/24 08:47
Electrocardiogram (*1) Urgent
Reason for Study: Hypertension, Benign
EKG- Treatment ONCE
06/07/24 11:13
Cardiac Monitoring- Treatment ONCE
06/07/24 11:18
Complete Blood Count/With Diff Urgent
Comprehensive Metabolic Panel Urgent
Troponin I Urgent
06/07/24 11:21
CT Head W/o Iv Contrast Urgent
Comment:
Reason For Exam: Headache, HTN
Acetaminophen [Tylenol] 650 mg PO NOW STA
Abnormal Lab Results
06/07/24
11:18
RBC 4.00 L 10^6/uL
(4.20-5.40)
MCH 32.0 H pg
(27.0-31.0)
Lymphocytes % 15.2 L %
(20.5-51.1)
Carbon Dioxide 31 H mmol/L
(22-30)
Glucose 106 H mg/dl
(70-99)
06/07/24 11:18
06/07/24 11:18
Vital Signs
Initial and Last Documented VS:
Initial Vital Signs
Temp Pulse Resp BP Pulse Ox
98.1 F 58 16 176/100 98
06/07/24 08:45 06/07/24 08:45 06/07/24 08:45 06/07/24 08:45 06/07/24 08:45
Last Documented Vital Signs
Temp Pulse Resp BP Pulse Ox
98.1 F 42 23 149/71 98
06/07/24 08:45 06/07/24 13:30 06/07/24 13:30 06/07/24 13:00 06/07/24 13:30
MDM/Problems Addressed
Differential Diagnosis Includes:
89yoF here with elevated BP worsening x 1 week. Has been having headaches, dizziness, and chest discomfort but she is asymptomatic on arrival. BP 176/100 on arrival. She is well appearing in no distress. No clinical signs of volume overload on exam.
Differential diagnosis includes but is not limited to: hypertension, hypertensive urgency, hypertensive emergency
Initial ED plan: Check cardiac labs, EKG, and CT head.
*EKG
Interpreted by ED Provider?: Yes
EKG Intrepretation Date: 06/07/24
Heart Rate: 48
Rate: bradycardiac
Rhythm: sinus
[place]: left axis deviation
Interval: normal interval
QRS Pattern: normal QRS
Ischemia: non-specific ST changes
*Critical Care Note
Total Time (30-74mins, 75-104mins- exclusive of procedures): Not Applicable
Update Note
Update Note:
Labs overall unremarkable including normal renal function. No ischemic changes on EKG and troponin within normal limits. CT head negative for acute findings. Blood pressure improved to 149/71 without intervention. Discussed case with on-call
pool player, Dr. Holguin. Patient bradycardic throughout ED stay with HR in the 40-[address] Holguin recommends decreasing metoprolol back down to 1 tab BID and adding amlodipine 2.5mg daily with plan for outpatient f/u in the office.
Patient in agreement with plan and was discharged in stable condition.
ED Attending Note
-
Portions of this chart may have been created with voice recognition software.� Occasional wrong word or��sound alike� substitutions may have occurred due to the inherent limitations of voice recognition software.
Discharge Plan
Departure
Patient Disposition: Home (Routine Discharge)
Date of Disposition: 06/07/24
Time of Disposition: 13:40
Patient with high blood pressure during this ER visit?: Yes
Discharge Problem:
Hypertension
Instructions: High Blood Pressure (DC)
Prescriptions:
New
amlodipine 2.5 mg tablet
2.5 mg PO DAILY Qty: 30 0RF
No Action
simvastatin 20 MG tablet
20 mg PO QPM
PreserVision AREDS-2 1 EACH capsule
1 ea PO BID
lisinopril 40 mg Tablet
40 mg PO DAILY
zolpidem [Ambien] 5 mg Tablet
5 mg PO HSPRN PRN (Reason: sleep)
guaifenesin 200 mg/5 mL Liquid
200 mg PO Q4HPRN PRN (Reason: cough)
cefuroxime axetil 500 mg Tablet
500 mg PO BID Qty: 3 0RF
Eliquis 5 mg Tablet
5 mg PO BID Qty: 60 1RF
furosemide 20 mg Tablet
20 mg PO DAILY Qty: 30 1RF
metoprolol succinate 25 mg Tablet Extended Release 24 Hr
25 mg PO BID Qty: 60 1RF
amiodarone 200 mg Tablet
See Rx Instructions .ROUTE .COMPLEX Qty: 120 0RF
Rx Instructions:
200 mg BID for 30 days, and then after that, decrease to 200 mg daily
Lactobac/Bifidobac [Visbiome]
1 cap PO DAILY Qty: 7 0RF
Referrals:
Saad Weiner PA-C [Family Provider] -
Sidney Barr MD [Active] -
Activity Restrictions/Additional Instructions:
Decrease your metoprolol to 1 tablet twice a day. Start taking amlodipine as prescribed.
Please follow-up with your pool player. Return to the ER with any new or worsening symptoms.
Interventions
Interventions:
*Risk Screen - Suicide Last Done: 06/07/24 08:45
*General Assessment Last Done: 06/07/24 11:06
*Neglect/Abuse Screening Last Done: 06/07/24 08:45
ED- Fall Risk Assessment Last Done: 06/07/24 14:22
*ED COVID-19 Vaccine History Last Done: 06/07/24 11:06
*Nursing Disposition Last Done: 06/07/24 14:22
ED- Cardiac Assessment Last Done: 06/07/24 11:05
ED- Neurological Assessment Last Done: 06/07/24 11:05
ED- Pulmonary Assessment Last Done: 06/07/24 11:05
Discharge Date and Time
Discharge Date/Time: 06/07/24 14:00
Print Language: TELUGU
[2024-06-07 11:26] LABS: % Basophils 0.6 % (0-2); % Immature Granulocytes 0.4 % (0-0.5); % Lymphocytes 15.2 % (20.5-51.1); % Monocytes 7.7 % (1.7-9.3); % Neutrophils 75.1 % (42.2-75.2); Absolute Basophils 0.1 10^3/uL (0-0.2); Absolute Eosinophils 0.1 10^3/uL (0-0.7); Absolute Lymphocytes 1.2 10^3/uL (1.2-3.4); Absolute Monocytes 0.6 10^3/uL (0.1-0.6); Absolute Neutrophils 5.9 10^3/uL (1.4-6.5); Hematocrit 38.8 % (37.0-47.0); Hemoglobin 12.8 g/dL (12.0-16.0); Mean Platelet Volume 8.8 fL (7.4-10.4); Nucleated Red Blood Cells % 0 %; Platelet Count 275 10^3/uL (130-400); Red Cell Dist. Width 14.4 % (11.5-14.5); White Blood Cell Count 7.8 10^3/uL (4.8-10.8)
[2024-06-07] MEDS: TYLENOL 650 MG PO (11:28)
[2024-06-07 11:39] LABS: ALT (SGPT) 15 U/L (0-35); AST (SGOT) 19 U/L (14-36); Albumin 3.9 g/dl (3.5-5.0); Alkaline Phosphatase 88 U/L (38-126); Blood Urea Nitrogen 17 mg/dl (7-17); Calcium 8.9 mg/dl (8.4-10.2); Carbon Dioxide 31 mmol/L (22-30); Chloride 102 mmol/L (98-107); Glucose 106 mg/dl (70-99); Sodium 138 mmol/L (135-145); Total Bilirubin 0.7 mg/dl (0.2-1.3); Total Protein 6.6 g/dl (6.3-8.2); eGFR > 60.00
[2024-06-07 11:50] LABS: Troponin I < 0.012 ng/ml
[2024-06-07 12:28] VITALS: BP 131/76
[2024-06-07 13:00] VITALS: BP 149/71
== END 2024-06-07 14:00 | disposition home or self-care (01) ==
LOC: EMR 08:43
PROVIDERS: Physician Assistant; EMERGENCY PHYSICIAN Emergency Medicine; FAMILY PHYSICIAN Physician Assistant Medical
DX: I11.0 Hypertensive heart disease with heart failure (principal); I50.9 Heart failure, unspecified; E78.00 Pure hypercholesterolemia, unspecified; I48.91 Unspecified atrial fibrillation
CPT/HCPCS: 99285; 70450; 80053; 84484; 85025; 93005

== ENCOUNTER → 2024-06-26 09:30 | Outpatient (REF) | payer OTHER, SELFPAY | LOC: RAD 09:30 | PROVIDERS: ATTENDING PHYSICIAN Nurse Practitioner Adult Health; FAMILY PHYSICIAN Physician Assistant Medical | DX: R91.8 Other nonspecific abnormal finding of lung field (principal); J18.9 Pneumonia, unspecified organism; R59.1 Generalized enlarged lymph nodes | CPT/HCPCS: 71260; Q9967 ==

== ENCOUNTER → 2024-07-29 13:25 | Outpatient (REF) | payer OTHER, SELFPAY | LOC: HWRAD 13:25 | PROVIDERS: ATTENDING PHYSICIAN Internal Medicine Critical Care Medicine; FAMILY PHYSICIAN Physician Assistant Medical | DX: J90 Pleural effusion, not elsewhere classified (principal) | CPT/HCPCS: 71046 ==

== ENCOUNTER → 2024-09-17 12:39 | Outpatient (REF) | payer OTHER, SELFPAY | LOC: HWRAD 12:39 | PROVIDERS: ATTENDING PHYSICIAN Internal Medicine Critical Care Medicine; FAMILY PHYSICIAN Physician Assistant Medical | DX: R91.8 Other nonspecific abnormal finding of lung field (principal) | CPT/HCPCS: 71250 ==

== ENCOUNTER → 2024-09-24 11:45 | Outpatient (REF) | payer OTHER, SELFPAY | LOC: HWWDC 11:45 | PROVIDERS: ATTENDING PHYSICIAN Physician Assistant Medical | DX: Z12.31 Encounter for screening mammogram for malignant neoplasm of breast (principal) | CPT/HCPCS: 77063; 77067 ==